=== PATIENT | female | born 1945 | race Caucasian/White ===

== ENCOUNTER 2019-11-17 08:34 | Outpatient (CLI) | payer MEDICARE, SELFPAY ==
--- NOTE | ~2019-11-17 | MMUS_ITS ---
EXAMINATION: MM screen RT diag LT w billie, US breast LT complete HISTORY: Follow-up breast masses TECHNIQUE: Additional 3-D tomosynthesis images of were performed and synthetic 2-D images were genera roberto. CAD analysis was submitted and interpreted. High resolution left breast ultrasound was performed . COMPARISON: Comparison to multiple prior studies sequentially, with oldest reviewed study dated 08/29. FINDINGS: MAMMOGRAPHIC FINDINGS: The breasts are heterogenously dense, which may obscure small masses. There are stable bilateral yuko st asymmetries and masses. No new masses, calcifications or architectural distortion. There are benig n-appearing breast calcifications. ULTRASOUND: Left breast ultrasound: There are multiple hypoechoic masses of the left breast. 12:00, 3 cm from the nipple, there is an ova l hypoechoic mass measuring 7 x 8 x 3 mm, decreased in size compared with prior examination. No inter nal vascularity or posterior features. At 12:00, 3 cm from the nipple, there is an irregular shaped h ypoechoic mass measuring 4 mm without posterior features or internal vascularity. At 12:00, 5 cm from the nipple, there is a 2 mm cyst. At 1:00, 4 cm from the nipple, there is an oval hypoechoic mass me asuring 3 x 4 x 3 mm with low-level internal echoes, subtle posterior acoustic enhancement and no int ernal vascularity. At 2:00, 4 cm from the nipple, there is an oval hypoechoic mass measuring 5 mm, li hawa intramammary lymph node or cluster of microcysts. At 2:00, 5 cm from the nipple, there is a 4 mm cyst. At 2:00, 5 cm from the nipple, there is an irregular shaped hypoechoic mass measuring 5 x 3 x 4 mm. This was not definitely visualized on prior examination. No internal vascularity or posterior f eatures. At 3:00, 6 cm from the nipple, there is an oval hypoechoic mass measuring 5 x 6 x 3 mm. No i nternal vascularity or posterior features. There are multiple simple and complicated cysts of the lef t breast. At 3:00, 5 cm from the nipple, there is an oval hypoechoic mass measuring 3 mm, likely shira gn. At 3:00, 5 cm from the nipple, there is a benign-appearing 5 mm intramammary lymph node. At 10:00 , 4 cm from the nipple, there is an irregular shaped hypoechoic mass measuring 6 x 5 mm without poste rior features. At 11:00, 3 cm from the nipple, there is a hypoechoic mass with echogenic hilum measur ing 7 mm with peripheral vascularity. No posterior features. This is likely benign intramammary lymph node. There are probable additional lymph nodes at this location. At 11:00, 3 cm from the nipple, th ere is an oval hypoechoic mass measuring 9 mm maximum dimension, likely benign. IMPRESSION: 1. Left breast masses identified by ultrasound not definitely seen on prior examinations, including m asses at 2:00, 5 cm from the nipple measuring 5 mm maximum dimension, 3:00, 6 cm from the nipple keiko uring 6 mm greatest dimension and 10:00, 4 cm from the nipple measuring 6 mm greatest dimension. Ultr asound-guided biopsy recommended for these masses. BI-RADS CATEGORY 4-SUSPICIOUS ABNORMALITY Reviewed, dictated and finalized at location A. IMPRESSION: 1. Left breast masses identified by ultrasound not definitely seen on prior exa minations, including masses at 2:00, 5 cm from the nipple measuring 5 mm maximu m dimension, 3:00, 6 cm from the nipple measuring 6 mm greatest dimension and 1 0:00, 4 cm from the nipple measuring 6 mm greatest dimension. Ultrasound-guided biopsy recommended for these masses. BI-RADS CATEGORY 4-SUSPICIOUS ABNORMALITY
--- NOTE | ~2019-11-17 | DEXA_ITS ---
BMD(1) Young-Adult(2) Age-Matched(3) Region (g/cm2) T-score Z-score WHO Classification L1 1.144 0.0 1.2 Normal L2 1.276 0.5 1.7 Normal L3 1.370 1.2 2.4 Normal L4 1.430 1.6 2.8 Normal L1-L4 1.307 0.9 2.1 Normal Trend: L1-L4 Change vs Change vs Measured Age BMD(1) Baseline Previous Date (years) (g/cm2) (%) (%) 13/17/2019 [age] 1.307 7.5* 6.3* 09[birth year]15/2016 70.8 1.230 1.2 1.2 04/22/2012 66.4 1.216 baseline - * - Indicates significant change based on 95% confidence interval. 1 - Statistically 68% of repeat scans fall within 1SD (+- 0.010 g/cm2 for AP Spine L1-L4) 2 - [place] (Combined NHANES (ages 20-30) / [employer] Co (ages 20-40)) AP Spine Reference Population (v112) 3 - Matched for Age, Weight (females 25-100 kg), Ethnic 11 - World Health Organization - Definition of Osteoporosis and Osteopenia for Women: Normal = T-score at or above -1.0 SD; Osteopenia = T-score between -1.0 and -2.5 SD; Osteoporosis = T-score at or below -2.5 SD; (WHO definitions only apply when a young healthy Women reference database is used to determine T-scores.) Printed: 11/17/2019 9:53:24 AM (13.60)76:3.00:22.22:27.0 0.00:12.30 0.60x1.05 30.7:%Fat=52.2% 0.00:0.00 0.00:0.00 Filename: [id number] Scan Mode: Thick;OneScan 83.0 uGIN[employer]NO [employer] [place] [id number] BMD(1) Young-Adult(2,7) Age-Matched(3) Region (g/cm2) T-score Z-score WHO Classification Neck Left 0.905 -1.0 0.5 Normal Right 0.907 -0.9 0.5 Normal Mean 0.906 -1.0 0.5 Normal Difference 0.002 0.0 0.0 - Total Left 0.973 -0.3 0.9 Normal Right 0.988 -0.2 1.0 Normal Mean 0.981 -0.2 1.0 Normal Difference 0.015 0.1 0.1 - Hip [place] Length Comparison (mm) (Right = 95.3 mm) (Mean = 102.5 mm) (Left = 96.6 mm) Trend: Total Mean Change vs Change vs Measured Age BMD(1) Baseline Previous Date (years) (g/cm2) (%) (%) 11/17/2019 74.0 0.981 3.2* 3.2* 04/22/2012 66.4 0.951 baseline - * - Indicates significant change based on 95% confidence interval. 1 - Statistically 68% of repeat scans fall within 1SD (+- 0.010 g/cm2 for DualFemur Total) 2 - [place] (Combined NHANES (ages 20-30) / [employer] Co (ages 20-40)) Femur Reference Population (v112) 3 - Matched for Age, Weight (females 25-100 kg), Ethnic 7 - DualFemur Total T-score difference is 0.1. Asymmetry is None. 11 - World Health Organization - Definition of Osteoporosis and Osteopenia for Women: Normal = T-score at or above -1.0 SD; Osteopenia = T-score between -1.0 and -2.5 SD; Osteoporosis = T-score at or below -2.5 SD; (WHO definitions only apply when a young healthy Women reference database is used to determine T-scores.) Printed: 11/17/2019 9:53:24 AM (13.60); Filename: [id number].dfx; Right Femur; 22.2:%Fat=39.7%; Neck Angle (deg)= 56; Scan Mode: Standard 37.0 uGy; Left Femur; 21.6:%Fat=40.9%; Neck Angle (deg)= 68; Scan Mode: Standard 37.0 uGy CDNlion [id number] Dear Ce Thompson, Your patient Kori Ferguson completed a BMD test on 11/17/2019 using the Lunar Prodigy DXA System (analysis version: 13.60) manufactured by [employer]. The following summarizes the results of our evaluation. PATIENT BIOGRAPHICAL: Name: Kori Ferguson
== END 2019-11-17 08:35 | disposition home or self-care (01) ==
PROVIDERS: PCP Internal Medicine; Visit Provider Internal Medicine
DX: N63.21 Unspecified lump in the left breast, upper outer quadrant (principal); N63.22 Unspecified lump in the left breast, upper inner quadrant; Z12.31 Encounter for screening mammogram for malignant neoplasm of breast; M81.0 Age-related osteoporosis without current pathological fracture
CPT/HCPCS: 76641; 77063; 77065; 77067; 77080

== ENCOUNTER 2020-02-05 10:40 | Emergency (ER) | payer MEDICARE, SELFPAY ==
--- NOTE | ~2020-02-05 | CT_ITS ---
EXAMINATION: CT brain wo con EXAM DATE: 02/05/2020 11:33 INDICATION: Temporary change in awareness. Fall. TECHNIQUE: Spiral CT of the head was performed without contrast. Axial, coronal and sagittal images were reviewed. The dose-length product (DLP) for this examination was 605.33 mGy-cm. The exposure w as tailored according to patient size, and iterative reconstruction (ASIR) was used as additional dos e reduction technique. There is no prior study for comparison. FINDINGS: There is no acute intraparenchymal hemorrhage. No evidence of intraparenchymal brain mass lesion. No evidence of acute infarction. Please note that initial head CT has limited sensitivity f or small or acute infarctions. There is mild periventricular and subcortical hypodensity, nonspecific but probably related to small vessel ischemic disease. There is moderate prominence of the sulci a nd ventricles related to cerebral atrophy. There is intracranial carotid arteriosclerosis. There a re no extra-axial collections. There is no mass effect or midline shift. The orbits are unremarkabl e. Small amount posterior scalp swelling suspected. The visualized sinuses and mastoid air cells are well aerated. IMPRESSION: 1. No acute intracranial findings. 2. Chronic age related findings. 3. Probable small posterior scalp swelling. Reviewed, dictated and finalized at location A.
--- NOTE | ~2020-02-05 | XR_ITS ---
EXAMINATION: XR chest 1V portable 02/05/2020 11:32 INDICATION: Confusion. Hallucination. Status post fall PROCEDURE: AP portable chest COMPARISON: Comparison to multiple prior studies sequentially, with oldest reviewed study dated 01/09. FINDINGS: The lungs are clear. The cardiomediastinal silhouette is within normal limits. There are no pleural effusions. There is no pneumothorax suspected. Calcified granuloma of the right lung bas e. IMPRESSION: 1: NO ACUTE CARDIOPULMONARY DISEASE. Reviewed, dictated and finalized at location B.
--- NOTE | ~2020-02-05 | XR_ITS ---
EXAMINATION: XR elbow LT 2V DATE: 02/05/2020 12:18 INDICATION: Left elbow injury TECHNIQUE: Anteroposterior and lateral views of the left elbow were obtained. COMPARISON: None. FINDINGS: Alignment is normal. No fracture or joint effusion. Joint spaces are normal. . Soft tissue swelling d orsal to the proximal ulna. IMPRESSION: 1. . No left elbow joint effusion or osseous abnormality. Reviewed, dictated and finalized at location A.
--- NOTE | ~2020-02-05 | XR_ITS ---
XR hip RT 2V w AP pelvis 02/05/2020 11:33 Indication: Right hip pain after fall Procedure: 4 views right hip Comparison: No prior studies for comparison. Findings: There is a comminuted, displaced right femoral intertrochanteric fracture. There is osteoar thritis of the hip. Osteopenia. Mild osteitis pubis. No significant soft tissue abnormality. Impression: 1: Comminuted displaced right femoral intertrochanteric fracture. Reviewed, dictated and finalized at location B. Impression: 1: Comminuted displaced right femoral intertrochanteric fracture.
--- NOTE | 2020-02-05 10:46 | ECG_ITS ---
Measurements Intervals [place] Rate: 111 P: 37 NH: 96 QRS: 48 QRSD: 93 T: 18 QT: 338 QTc: 461 Interpretive Statements SINUS TACHYCARDIA WITH SHORT NH INTERVAL CONSIDER INFERIOR INFARCT, AGE INDETERMINATE BORDERLINE ST ABNORMALITY- ANTEROLATERAL LEADS BASELINE ARTIFACT- I, II, AVR, AVL, V1 ABNORMAL ECG Electronically Signed On 02-05-2020 12:10:04 CDT by Gagan Hooper D.O.
[2020-02-05 10:56] VITALS: BP 115/65; PULSE 116; RESP 18; TEMP 36.6; O2SAT 97
[2020-02-05 11:09] LABS: Mean Corpuscular HGB Conc 34.2 g/dL (32.0-36.0); Mean Corpuscular Volume 90.5 fL (78.0-102.0); Mean Platelet Volume 9.1 fl (9.2-11.8); Platelet Count Result 248 K/mm3 (150-420); Red Cell Distribution Width 13.2 % (11.6-14.4); White Blood Count 11.7 K/mm3 (4.8-10.8)
[2020-02-05 11:27] LABS: BNP 28.6 pg/mL (0-100)
[2020-02-05 11:34] LABS: Alanine Aminotransferase 28 U/L (14-59); Alkaline Phosphatase 139 U/L (46-116); Anion Gap 9 mmol/L (8-16); Aspartate Amino Transferase 21 U/L (15-37); Bilirubin,Total 1.2 mg/dL (0.00-1.00); Blood Urea Nitrogen 22 mg/dL (7-18); Calcium 8.9 mg/dL (8.5-10.1); Carbon Dioxide 29 mmol/L (21-32); Chloride 100 mmol/L (98-108); Creatine Kinase 750 U/L (26-192); Estimated CRCL calculation 36 ml/min; Estimated Glomerular Filt Rate 43; Glucose 180 mg/dL (70-99); Osmolality Calculated 294 mOsm/kg (285-295); Potassium 3.9 mmol/L (3.5-5.1); Sodium 138 mmol/L (136-145); Thyroid Stimulating Hormone 0.56 uIU/mL (0.36-3.74); Total Protein 7.6 g/dL (6.4-8.2); Troponin I < 0.02 ng/mL (0.00-0.056)
[2020-02-05 11:35] LABS: Ethanol 5 mg/dL (0-6)
[2020-02-05 11:48] VITALS: BP 127/75; PULSE 109; RESP 20; O2SAT 98
[2020-02-05] MEDS: SODIUM CHLORIDE 0.9% IV 1,000 ML 999 ML IV CONT (11:48)
[2020-02-05 11:50] LABS: INR 1.1; Partial Thromboplastin Time 29.5 SEC (22.3-31.6); Prothrombin Time 10.9 Seconds (9.64-11.0)
--- NOTE | 2020-02-05 12:28 | ED.AMS ---
HPI - Altered Mental Status General Chief Complaint: Altered Mental Status Stated Complaint: Ambulance Source: patient Mode of arrival: EMS Limitations: no limitations History of Present Illness HPI narrative: This is a 74-year-old female presents via EMS after daughter had called and she was found on the floor known length of time there was loss of urine, with no seizure activity no history of seizures. The patient apparently had a fall and has a externally rotated right leg with a good brisk pedal pulse with no numbness or tingling with no pain currently in her right hip area. The patient has a known history of COPD, hypertension, hyperlipidemia and history of alcoholism. Patient is not complaining of any shortness of breath, no chest pain no fever chills no nausea vomiting or abdominal pain. The patient also has some bruising and contusion to her left elbow area. There is no bruising or contusions to her right hip area. MD complaint: confusion Onset (ago): hour(s) Timing confirmed by: family member Severity: mild Context: alcohol abuse Associated symptoms: denies other symptoms Related Data Home Medications Medication Instructions Recorded Confirmed albuterol sulfate 2 puff INHALATION QID 02/05/20 02/05/20 aspirin 81 mg PO DAILY 02/05/20 02/05/20 atorvastatin 40 mg PO DAILY 02/05/20 02/05/20 cetirizine [Zyrtec] 10 mg PO DAILY 02/05/20 02/05/20 cilostazol 100 mg PO BID 02/05/20 02/05/20 citalopram 20 mg PO DAILY 02/05/20 02/05/20 clonazepam 1 mg PO DAILY 02/05/20 02/05/20 ergocalciferol (vitamin D2) 1,250 mcg PO WEEKLY 02/05/20 02/05/20 fluticasone propionate 2 spray INTRANASAL DAILY 02/05/20 02/05/20 fluticasone propionate [Flovent 1 puff INHALATION Q12H 02/05/20 02/05/20 HFA] furosemide 40 mg PO DAILY 02/05/20 02/05/20 ipratropium bromide 2 spray INTRANASAL TID 02/05/20 02/05/20 oxybutynin chloride 5 mg PO BID 02/05/20 02/05/20 spironolactone 100 mg PO DAILY 09/17/20 09/17/20 Allergies Allergy/AdvReac Type Severity Reaction Status Date / Time Penicillins Allergy Unknown Verified 04/17/12 10:51 Review of Systems Review of Systems: All systems reviewed & are unremarkable except as noted in HPI and below PMFSH Past Medical History Medical History COPD (chronic obstructive pulmonary disease) History of alcoholism HLD (hyperlipidemia) HTN (hypertension) Family History Family History Father Hypertension Social History Social History Smoking status: Heavy tobacco smoker Second hand tobacco smoke exposure: No Alcohol intake: current Exam Const: General: no acute distress and alert Orientation/consciousness: patient oriented x3 HENMT: Head: normal to inspection Eyes: Conjunctivae: conjunctivae normal Pupils: Equal, round and reactive pupils present EOM: EOMs intact bilaterally Direct Ophthalmoscopy: no photophobia Neck: Neck: normal visual inspection, no lymphadenopathy and no meningeal signs Chest: Chest palpation & inspection: normal inspection of the chest Resp: Effort & Inspection: normal respiratory effort Auscultation: clear to auscultation bilaterally Cardio: Rate: tachycardic Rhythm: regular rhythm GI: GI Palp: Yes Soft to palpation Auscultation: normal bowel sounds : General: Yes no CVA tenderness Neuro: General: patient oriented x3, moves all extremities, no meningeal signs and no focal motor deficits Speech: normal speech Extrem: Other: external rotation right leg with a brisk pedal pulse with no numbness or tingling no bruising or hematomas noted Psych: Appearance: grossly normal Mental Status: mental status grossly normal Affect: normal affect Attitude: cooperative Thought content: Yes Normal thought content present Course Course Emergency Course: reassessment of patient continues to be pain-
[2020-02-05 12:37] LABS: Add Urine Microscopic? YES; Appearance Urine Sl Cloudy (Clear); Bilirubin Urine Negative (Negative); Blood Urine 1+ (Negative); Color Urine Amber (Yellow); Glucose Urine UA Negative (Negative); Ketones Urine Trace (Negative); Leukocyte Esterase Ur Trace (Negative); Nitrate Urine Positive (Negative); Protein Urine Trace (Negative); Specific Grav Ur >= 1.030 (1.010-1.020); Urobilinogen Urine 0.2 mg/dL (0.2-1.0)
[2020-02-05 12:40] LABS: Squamous Epithelial Cell Urine Few /hpf (Few)
[2020-02-05 12:41] LABS: Bacteria Urine 2+ /hpf
--- NOTE | 2020-02-05 12:52 | PC.NURSE ---
Pt requesting [facility] for transfer because her daughter lives in [place]. [facility] contacted.
[2020-02-05 13:13] VITALS: BP 155/73; PULSE 101
[2020-02-05 14:11] LABS: Reflex Lactic Acid Yes or No No Lactic Reflex
[2020-02-05 14:45] VITALS: BP 145/85; PULSE 88; RESP 15; TEMP 36.8; O2SAT 97
--- NOTE | 2020-02-05 15:22 | PC.NURSE ---
[facility] unavailable for 1hr or more to take transfer. [facility] contacted and will take pt to [facility]. no change in pt condition.
--- NOTE | 2020-02-07 20:00 | PC.NURSE ---
Preliminary blood culture report noted. call to [facility], spoke with charge nurse Yazan, regarding results. faxed report to yazan per request.
== END 2020-02-05 15:56 | disposition short-term general hospital (02) ==
PROVIDERS: Emergency Provider Emergency Medicine; PCP Internal Medicine
DX: S72.141A Displaced intertrochanteric fracture of right femur, initial encounter for closed fracture (principal); J44.9 Chronic obstructive pulmonary disease, unspecified; E78.5 Hyperlipidemia, unspecified; I10 Essential (primary) hypertension; F17.200 Nicotine dependence, unspecified, uncomplicated; Z79.899 Other long term (current) drug therapy; W19.XXXA Unspecified fall, initial encounter
CPT/HCPCS: 36415; 70450; 71045; 73070; 73502; 80053; 80307; 81001; 82550; 83605; 83880; 84443; 84484; 85027; 85610; 85730; 87040; 87077; 87186; 93005; 96361; 96365; 99285; J0696; J7030

== ENCOUNTER 2020-09-14 10:55 | Emergency (ER) | payer MEDICARE, SELFPAY ==
--- NOTE | 2020-09-14 11:03 | ED.FEMALEGU ---
HPI - Female Genitourinary General Chief complaint: Urogenital-Female Stated complaint: Weak sob Source: patient and RN notes reviewed Mode of arrival: ambulatory Limitations: no limitations History of Present Illness HPI Narrative: patient has been having weakness and shortness of breath for the last 2-3 days. This morning when her daughter went to the house patient appeared confused. She gets urinary tract infections frequently and when she does she becomes confused the last time this happened she fell and broke her femur. She went to her primary care physician's office this morning, and then was sent here for further evaluation for possible antibiotics and to see if she might need to be admitted for altered mental status. MD elicited complaint: UTI Pertinent past history: recurrent UTIs Onset (ago): day(s) (2) Severity: moderate Urinary symptoms: Frequency Exacerbating factors: none Relieving factors: none Associated symptoms: weakness and chills Sexual activity: No Related Data Home Medications Medication Instructions Recorded Confirmed albuterol sulfate 2 puff INHALATION QID 02/05/20 09/14/20 aspirin 81 mg PO DAILY 02/05/20 09/14/20 atorvastatin 40 mg PO DAILY 02/05/20 09/14/20 cetirizine [Zyrtec] 10 mg PO DAILY 02/05/20 09/14/20 cilostazol 100 mg PO BID 02/05/20 09/14/20 citalopram 20 mg PO DAILY 02/05/20 09/14/20 clonazepam 1 mg PO DAILY 02/05/20 09/14/20 ergocalciferol (vitamin D2) 1,250 mcg PO WEEKLY 02/05/20 09/14/20 fluticasone propionate 2 spray INTRANASAL DAILY 02/05/20 09/14/20 fluticasone propionate [Flovent 1 puff INHALATION Q12H 02/05/20 09/14/20 HFA] furosemide 40 mg PO DAILY 02/05/20 02/05/20 ipratropium bromide 2 spray INTRANASAL TID 02/05/20 02/05/20 oxybutynin chloride 5 mg PO BID 02/05/20 02/05/20 spironolactone 100 mg PO DAILY 02/05/20 02/05/20 Allergies Allergy/AdvReac Type Severity Reaction Status Date / Time Penicillins Allergy Unknown Verified 04/17/12 10:51 [facility] Past Medical History Medical History (Updated 09/14/20 @ 13:34 by Dandy Richardson MD) COPD (chronic obstructive pulmonary disease) History of alcoholism HLD (hyperlipidemia) HTN (hypertension) Family History Family History Father Hypertension Social History Social History Smoking status: Heavy tobacco smoker Second hand tobacco smoke exposure: No Alcohol intake: current Exam Const: General: healthy appearing and no acute distress Nutritional Appearance: well nourished and obese centrally obese Orientation/consciousness: patient oriented x3 Other: Patient appears interactive, oriented with no change in mentation at this time HENMT: Head: normal to inspection Ears: external ears normal Eyes: General: appearance normal, both eyes and all related structures Conjunctivae: conjunctivae normal Pupils: Equal, round and reactive pupils present EOM: EOMs intact bilaterally Neck: Neck: normal visual inspection Resp: Effort & Inspection: normal respiratory effort Auscultation: clear to auscultation bilaterally Cardio: Rate: regular rate Rhythm: regular rhythm GI: GI Palp: Yes Soft to palpation and No Tenderness to palpation present (GI) Auscultation: normal bowel sounds Back/Spine/Pelvis: Back: no CVA tenderness Cervical Spine: cervical ROM normal Thoracic/Lumbar Spine: thoraco-lumbar ROM normal Skin: General skin exam: normal color Rashes: no rashes Neuro: General: patient oriented x3, moves all extremities, no meningeal signs and no focal motor deficits Speech: normal speech Gait exam (Neuro): Normal gait present ( Uses a walker) Course Course Emergency Course: I discussed possible admission with the patient she decides she wants to go home she says that she feels fine. Daughter is here and agrees that she feels that she will be safe at home. Vital Signs Vital signs: Vital Signs T
[2020-09-14 11:10] VITALS: BP 111/67; PULSE 107; RESP 20; TEMP 36.4; O2SAT 96
[2020-09-14 11:37] LABS: Basophils Absolute Auto 0.01 K/mm3 (0.00-0.10); Basophils Percent Auto 0.1 % (0.0-1.0); Hematocrit 40.1 % (35.0-42.0); Hemoglobin 13.9 g/dL (11.7-13.8); Immature Granulocyte Absolute 0.12 K/mm3 (0.00-0.00); Immature Granulocyte Percent A 0.9 % (0.0-0.0); Lymphocytes Percent Auto 9.8 % (18.0-42.0); Mean Corpuscular HGB Conc 34.7 g/dL (32.0-36.0); Mean Corpuscular Hemoglobin 30.9 pg (27.0-31.0); Mean Corpuscular Volume 89.1 fL (78.0-102.0); Mean Platelet Volume 8.9 fl (9.2-11.8); Monocytes Absolute Auto 1.09 K/mm3 (0.10-0.90); Monocytes Percent Auto 8.2 % (2.0-11.0); Neutrophils Absolute Auto 10.8 K/mm3 (1.7-7.2); Platelet Count Result 274 K/mm3 (150-420); Red Cell Distribution Width 12.8 % (11.6-14.4); White Blood Count 13.3 K/mm3 (4.8-10.8)
[2020-09-14 11:38] LABS: Add Urine Microscopic? YES; Appearance Urine Sl Cloudy (Clear); Bilirubin Urine Negative (Negative); Blood Urine 3+ (Negative); Color Urine Yellow (Yellow); Glucose Urine UA Negative (Negative); Ketones Urine Negative (Negative); Leukocyte Esterase Ur 3+ LEU/UL (Negative); Nitrate Urine Negative (Negative); Protein Urine 1+ (Negative); Urobilinogen Urine 0.2 mg/dL (0.2-1.0)
[2020-09-14 11:45] LABS: Bacteria Urine 4+ /hpf; Renal Epithelial Cells Urine Few /hpf; Squamous Epithelial Cell Urine Few /hpf (Few); WBC Urine >75 /hpf (0-3)
[2020-09-14 11:51] LABS: Alanine Aminotransferase 30 U/L (14-59); Albumin Level 4.1 g/dL (3.4-5.0); Alkaline Phosphatase 171 U/L (46-116); Anion Gap 11 mmol/L (8-16); Aspartate Amino Transferase 15 U/L (15-37); Bilirubin,Total 1.1 mg/dL (0.00-1.00); Blood Urea Nitrogen 19 mg/dL (7-18); Calcium 9.8 mg/dL (8.5-10.1); Carbon Dioxide 27 mmol/L (21-32); Chloride 98 mmol/L (98-108); Estimated Glomerular Filt Rate 38; Glucose 90 mg/dL (70-99); Osmolality Calculated 284 mOsm/kg (285-295); Potassium 3.4 mmol/L (3.5-5.1); Sodium 136 mmol/L (136-145)
[2020-09-14 11:53] LABS: CRP 14.9 mg/dL (0.0-0.9)
[2020-09-14 13:40] VITALS: BP 118/72
== END 2020-09-14 13:40 | disposition home or self-care (01) ==
PROVIDERS: Emergency Provider Emergency Medicine; PCP Internal Medicine
DX: N30.01 Acute cystitis with hematuria (principal)
CPT/HCPCS: 36415; 51701; 80053; 81001; 85025; 86140; 87077; 87086; 87088; 87186; 96365; 99283; 99284; J0696

== ENCOUNTER 2020-10-07 09:06 | Outpatient (CLI) | payer MEDICARE, SELFPAY ==
[2020-10-07 09:24] LABS: Basophils Absolute Auto 0.01 K/mm3 (0.00-0.10); Basophils Percent Auto 0.1 % (0.0-1.0); Eosinophils Absolute Auto 0.08 K/mm3 (0.02-0.50); Eosinophils Percent Auto 1.2 % (1.0-6.0); Hematocrit 41.1 % (35.0-42.0); Hemoglobin 14.2 g/dL (11.7-13.8); Immature Granulocyte Absolute 0.05 K/mm3 (0.00-0.00); Immature Granulocyte Percent A 0.7 % (0.0-0.0); Lymphocytes Absolute Auto 2.65 K/mm3 (1.10-4.50); Lymphocytes Percent Auto 38.2 % (18.0-42.0); Mean Corpuscular HGB Conc 34.5 g/dL (32.0-36.0); Mean Corpuscular Hemoglobin 30.9 pg (27.0-31.0); Mean Corpuscular Volume 89.5 fL (78.0-102.0); Mean Platelet Volume 8.6 fl (9.2-11.8); Monocytes Absolute Auto 0.52 K/mm3 (0.10-0.90); Monocytes Percent Auto 7.5 % (2.0-11.0); Neutrophils Absolute Auto 3.6 K/mm3 (1.7-7.2); Neutrophils Percent Auto 52.3 % (50.0-70.0); Platelet Count Result 261 K/mm3 (150-420); Red Blood Count 4.59 M/mm3 (4.20-5.40); Red Cell Distribution Width 12.8 % (11.6-14.4); White Blood Count 6.9 K/mm3 (4.8-10.8)
[2020-10-07 10:19] LABS: Alanine Aminotransferase 81 U/L (14-59); Albumin Level 4.4 g/dL (3.4-5.0); Alkaline Phosphatase 153 U/L (46-116); Anion Gap 11 mmol/L (8-16); Aspartate Amino Transferase 30 U/L (15-37); Bilirubin,Total 0.4 mg/dL (0.00-1.00); Blood Urea Nitrogen 15 mg/dL (7-18); Calcium 9.6 mg/dL (8.5-10.1); Carbon Dioxide 30 mmol/L (21-32); Chloride 100 mmol/L (98-108); Estimated Glomerular Filt Rate 45; Glucose 107 mg/dL (70-99); Osmolality Calculated 292 mOsm/kg (285-295); Potassium 3.8 mmol/L (3.5-5.1); Sodium 141 mmol/L (136-145); Total Protein 7.6 g/dL (6.4-8.2)
== END 2020-10-07 09:07 | disposition home or self-care (01) ==
LOC: CHSLAB 09:08
PROVIDERS: PCP Internal Medicine; Visit Provider Internal Medicine
DX: R19.7 Diarrhea, unspecified (principal)
CPT/HCPCS: 36415; 80053; 85025

== ENCOUNTER 2020-10-11 08:02 | Outpatient (CLI) | payer MEDICARE, SELFPAY | END 2020-10-11 08:03 | disposition home or self-care (01) | PROVIDERS: PCP Internal Medicine; Visit Provider Internal Medicine | DX: R19.7 Diarrhea, unspecified (principal) | CPT/HCPCS: 87324 ==

== ENCOUNTER 2021-04-13 13:55 | Outpatient (CLI) | payer MEDICARE, SELFPAY ==
[2021-04-13 14:44] LABS: Influenza A QL RT-PCR Negative (Negative); Influenza B QL RT-PCR Negative (Negative); SARS-CoV-2 RNA PCR Negative (Negative)
== END 2021-04-13 13:56 | disposition home or self-care (01) ==
LOC: CHSLAB 13:56
PROVIDERS: PCP Internal Medicine; Visit Provider Internal Medicine
DX: J06.9 Acute upper respiratory infection, unspecified (principal); Z20.822 Contact with and (suspected) exposure to COVID-19
CPT/HCPCS: 87502; C9803; U0003; U0005

== ENCOUNTER 2021-05-07 16:06 | Emergency (ER) | payer MEDICARE, SELFPAY ==
--- NOTE | ~2021-05-07 | XR_ITS ---
EXAMINATION: XR chest 1V portable 05/07/2021 17:16 INDICATION: Shortness of breath and leg swelling PROCEDURE: AP portable chest COMPARISON: Comparison to multiple prior studies sequentially, with oldest reviewed study dated 02/18. FINDINGS: The lungs are clear. The cardiomediastinal silhouette is within normal limits. There are no pleural effusions. There is no pneumothorax suspected. There is sequela of chronic granulomatous disease. IMPRESSION: 1: NO ACUTE CARDIOPULMONARY DISEASE. Reviewed, dictated and finalized at location A. 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
[2021-05-07 16:42] VITALS: BP 114/58; PULSE 72; RESP 18; TEMP 36.1; O2SAT 96
--- NOTE | 2021-05-07 16:46 | ED.EXTPRO ---
HPI - Extremity Problem General Chief complaint: Extremity Problem,Nontraumatic Stated complaint: swelling in legs Time Seen by Provider: 05/07/21 16:46 Source: patient History of Present Illness HPI Narrative: 75-year-old female, smoker, history of alcohol use, hypertension, dyslipidemia, COPD, CKD, recurrent urinary tract infection presented to the ER with -- left leg swelling with pain. No history of trauma. She has bilateral leg swelling but the left is greater than the right. No fever. Chest pain. No shortness of breath. MD Complaint: extremity swelling Onset (ago): day(s) ( More than 3 days.) Pain Consistency: constant Location: left Severity scale (1-10): 2 Quality: aching Radiation: none Relieving factors: nothing Exacerbating factors: nothing Associated symptoms: denies other symptoms and shortness of breath ( She has chronic cough and shortness of breath but has had no recent exacerbations.) Related Data Home Medications Medication Instructions Recorded Confirmed albuterol sulfate 2 puff INHALATION QID 02/05/20 09/14/20 aspirin 81 mg PO DAILY 02/05/20 09/14/20 atorvastatin 40 mg PO DAILY 02/05/20 09/14/20 cetirizine [Zyrtec] 10 mg PO DAILY 02/05/20 09/14/20 cilostazol 100 mg PO BID 02/05/20 09/14/20 citalopram 20 mg PO DAILY 02/05/20 09/14/20 clonazepam 1 mg PO DAILY 02/05/20 09/14/20 ergocalciferol (vitamin D2) 1,250 mcg PO WEEKLY 02/05/20 09/14/20 fluticasone propionate 2 spray INTRANASAL DAILY 02/05/20 09/14/20 fluticasone propionate [Flovent 1 puff INHALATION Q12H 02/05/20 09/14/20 HFA] furosemide 40 mg PO DAILY 02/05/20 09/14/20 ipratropium bromide 2 spray INTRANASAL TID 02/05/20 09/14/20 oxybutynin chloride 5 mg PO BID 02/05/20 09/14/20 spironolactone 100 mg PO DAILY 02/05/20 09/14/20 Allergies Allergy/AdvReac Type Severity Reaction Status Date / Time Penicillins Allergy Unknown Unknown Verified 05/07/21 16:42 Review of Systems Review of Systems: All systems reviewed & are unremarkable except as noted in HPI and below Constitutional: Constitutional: Reports no additional constitutional complaints Eyes: Eyes: Reports as per HPI and Reports no additional eye complaints ENT: Reports system reviewed and no additional complaints, except as documented Comments: Left ear is stopped up. Bilateral gland swelling in the neck. Cardiovascular: Cardiovascular: Reports as per HPI and Reports no additional cardiovascular complaints Respiratory: Respiratory: Reports cough and Reports dyspnea Gastrointestinal: Gastrointestinal: Reports as per HPI and Reports no additional gastrointestinal complaints Genitourinary: Genitourinary: Reports no additional female genitourinary complaints and Reports as per HPI Musculoskeletal: Musculoskeletal: Reports no additional musculoskeletal complaints and Reports as per HPI Integumentary/Breasts: Skin/Breast: Reports system reviewed and no additional complaints, except as docu Neurologic: Reports system reviewed and no additional complaints, except as documented Psychiatric: Psychiatric: Reports no additional psychiatric complaints and Reports as per HPI Endocrine: Endocrine: Reports no additional endocrine complaints Hematologic/Lymphatic: Hematologic/Lymphatic: Reports no additional hematologic/lymphatic complaints Allergic/Immunologic: Allergic/Immunologic: Reports no additional allergic/immunologic complaints [facility] Past Medical History Medical History (Updated 05/07/21 @ 18:58 by Bill Dumas MD) CKD (chronic kidney disease) COPD (chronic obstructive pulmonary disease) History of alcoholism HLD (hyperlipidemia) HTN (hypertension) Family History Family History Father Hypertension Social History Social History Smoking status: Heavy tobacco smoker Second hand tobacco smoke exposure: No Alcohol intake: current Exam Const:
--- NOTE | 2021-05-07 17:03 | ECG_ITS ---
Measurements Intervals [place] Rate: 61 P: 59 SC: 145 QRS: 69 QRSD: 94 T: 55 QT: 425 QTc: 431 Interpretive Statements SINUS RHYTHM LOW QRS VOLTAGE IN PRECORDIAL LEADS BORDERLINE ST-T WAVE ABNORMALITY- ANTEROLAT/INF LEADS BASELINE ARTIFACT- I, II, III, AVR, AVL, AVF, V6 BORDERLINE ECG Electronically Signed On 05-07-2021 20:16:29 LINER CHECKER by Gagan Hooper D.O.
[2021-05-07 17:29] LABS: Basophils Absolute Auto 0.02 K/mm3 (0.00-0.10); Basophils Percent Auto 0.3 % (0.0-1.0); Eosinophils Absolute Auto 0.08 K/mm3 (0.02-0.50); Eosinophils Percent Auto 1.3 % (1.0-6.0); Hemoglobin 14.2 g/dL (11.7-13.8); Immature Granulocyte Absolute 0.04 K/mm3 (0.00-0.00); Immature Granulocyte Percent A 0.6 % (0.0-0.0); Lymphocytes Percent Auto 35.9 % (18.0-42.0); Mean Corpuscular HGB Conc 34.6 g/dL (32.0-36.0); Mean Corpuscular Hemoglobin 31.9 pg (27.0-31.0); Mean Corpuscular Volume 92.1 fL (78.0-102.0); Mean Platelet Volume 9.1 fl (9.2-11.8); Monocytes Absolute Auto 0.53 K/mm3 (0.10-0.90); Monocytes Percent Auto 8.3 % (2.0-11.0); Neutrophils Absolute Auto 3.4 K/mm3 (1.7-7.2); Neutrophils Percent Auto 53.6 % (50.0-70.0); Platelet Count Result 244 K/mm3 (150-420); Red Blood Count 4.45 M/mm3 (4.20-5.40); Red Cell Distribution Width 12.9 % (11.6-14.4); White Blood Count 6.4 K/mm3 (4.8-10.8)
[2021-05-07 17:44] LABS: D Dimer 0.44 mg/L (0.19-0.50)
[2021-05-07 17:53] LABS: Alanine Aminotransferase 31 U/L (14-59); Albumin Level 3.8 g/dL (3.4-5.0); Alkaline Phosphatase 139 U/L (46-116); Anion Gap 8 mmol/L (8-16); Aspartate Amino Transferase 16 U/L (15-37); Bilirubin,Total 0.5 mg/dL (0.00-1.00); Blood Urea Nitrogen 14 mg/dL (7-18); Calcium 8.9 mg/dL (8.5-10.1); Carbon Dioxide 33 mmol/L (21-32); Chloride 102 mmol/L (98-108); Estimated CRCL calculation 40 ml/min; Estimated Glomerular Filt Rate 48; Glucose 92 mg/dL (70-99); NT Pro B Type Natriuretic Pept 187 pg/mL (0-125); Osmolality Calculated 296 mOsm/kg (285-295); Potassium 3.6 mmol/L (3.5-5.1); Sodium 143 mmol/L (136-145); Total Protein 6.9 g/dL (6.4-8.2); Troponin I 5.1 ng/L (0.00-60.4)
[2021-05-07 18:20] LABS: Add Urine Microscopic? NO; Appearance Urine Clear (Clear); Bilirubin Urine Negative (Negative); Blood Urine Negative (Negative); Color Urine Light Yellow (Yellow); Glucose Urine UA Negative (Negative); Ketones Urine Negative (Negative); Leukocyte Esterase Ur Negative (Negative); Nitrate Urine Negative (Negative); Protein Urine Negative (Negative); Urobilinogen Urine 0.2 mg/dL (0.2-1.0)
== END 2021-05-07 18:41 | disposition left against medical advice (07) ==
LOC: CHSED 16:08
PROVIDERS: Emergency Provider Internal Medicine Critical Care Medicine; PCP Internal Medicine
DX: M79.89 Other specified soft tissue disorders (principal); N28.9 Disorder of kidney and ureter, unspecified; J44.9 Chronic obstructive pulmonary disease, unspecified; E78.5 Hyperlipidemia, unspecified; I10 Essential (primary) hypertension; F17.200 Nicotine dependence, unspecified, uncomplicated; R06.00 Dyspnea, unspecified
CPT/HCPCS: 36415; 71045; 80053; 81003; 83880; 84484; 85025; 85380; 93005; 99283; 99284

== ENCOUNTER 2021-07-19 09:37 | Outpatient (CLI) | payer MEDICARE, SELFPAY ==
--- NOTE | ~2021-07-19 | US_ITS ---
EXAMINATION: US venous doppler [facility] EXAM DATE: 07/19/2021 10:07 INDICATION: PAD legs, Edema . TECHNIQUE: Multiple grayscale, color flow and Doppler images of the left lower extremity deep venous system were obtained and reviewed. There is no prior study for comparison. FINDINGS: The left common femoral, femoral and profunda veins demonstrate normal color flow, respirat ory variation, augmentation and compressibility. Compressibility, color flow confirmed within the le ft popliteal, posterior tibial, peroneal, and greater saphenous veins. IMPRESSION: 1. No left lower extremity deep venous thrombosis. Reviewed, dictated and finalized at location G. UNT REPRESENTATIVE
== END 2021-07-19 09:38 | disposition home or self-care (01) ==
LOC: CHSIMG 09:40
PROVIDERS: PCP Internal Medicine; Visit Provider Internal Medicine
DX: I73.9 Peripheral vascular disease, unspecified (principal); R60.9 Edema, unspecified
CPT/HCPCS: 93971

== ENCOUNTER 2021-07-20 07:55 | Outpatient (CLI) | payer MEDICARE, SELFPAY ==
--- NOTE | ~2021-07-20 | US_ITS ---
EXAMINATION: US carotid duplex BI DATE: 07/20/2021 08:34 INDICATION: Peripheral arterial disease. TECHNIQUE: Grayscale, color Doppler, and pulsed Doppler images of the cervical carotid arteries were obtained. The degree of vessel stenosis is placed in one of the following categories: normal, <50%, 5 0-69%, >=70% but less than near-occlusion, near-occlusion, or total occlusion. Note that percent sten osis relative to normal distal artery lumen diameter is indirectly measured from velocity measurement s as described by Van, et al. Radiology 2003; [id number]:[id number]. Notes: Normal: Peak systolic velocity <125 centimeters/sec and no plaque <50%. Peak systolic velocity <125 ( EDV <40; ICA/CCA PSV ratio <2.0; used these factors only a tandem lesions or low cardiac output or co ntralateral disease) 50-69 %: PSV 125-230 (EDV 40-100; ratio 2-4) >= 70% but less than near occlusion: PSV greater than 230 (EDV > 100; ratio> 4.0) Near Occlusion: PSV that is variable; markedly narrowed lumen Occlusion: Absent flow on color/spectral Doppler and no lumen on huertas scale. COMPARISON: None. FINDINGS: RIGHT: The right common carotid artery (CCA) peak systolic velocity (PSV) is 106 cm/s. The right internal ca rotid artery (ICA) PSV is 71 cm/s. The right ICA end-diastolic velocity (EDV) is 18 cm/s. The right I CA/CCA PSV ratio is 0.7. The external carotid artery (ECA) PSV is 73 cm/s. There is antegrade flow in the right vertebral artery. LEFT: The left CCA PSV is 114 cm/s. The left ICA PSV is 55 cm/s. The left ICA EDV is 15 cm/s. The left ICA/ CCA PSV ratio is 0.5. The ECA PSV is 79 cm/s. There is antegrade flow in the left vertebral artery. IMPRESSION: 1. Less than 50% stenosis in the right internal carotid artery by sonographic criteria. 2. Less than 50% stenosis in the left internal carotid artery by sonographic criteria. Reviewed, dictated and finalized at location A. GAGE CLERK IMPRESSION: 1. Less than 50% stenosis in the right internal carotid artery by sonographic grace rojas. 2. Less than 50% stenosis in the left internal carotid artery by sonographic naresh alvarez.
--- NOTE | ~2021-07-20 | CT_ITS ---
EXAMINATION: CT lung screening DATE: 07/20/2021 08:44 INDICATION: Personal history of nicotine dependence, prior smoker with 50 pack year history TECHNIQUE: Computed tomography (CT) of the chest was performed without intravenous contrast. The dose -length product (DLP) was 141.43 mGy-cm. Automated exposure control and iterative reconstruction tech [employer] were employed. COMPARISON: None FINDINGS: There is a 3 mm nodule of the right upper lobe. Mild emphysema is noted. There is no pleura l effusion or pneumothorax. Calcified pulmonary nodules and calcified right hilar lymph nodes are con sistent with old granulomatous disease. The lungs are free of acute opacities. No pathologically enla rged thoracic lymph nodes are identified. The heart size is normal. There is an age-indeterminate mil d superior endplate compression fracture of the T12 vertebral body. IMPRESSION: 1. Lung-RADS category 2: Benign appearance or behavior. Continue annual screening with noncontrast lo w-dose chest CT in 12 months. Reviewed, dictated and finalized at location D. RNER IMPRESSION: 1. Lung-RADS category 2: Benign appearance or behavior. Continue annual screeni ng with noncontrast low-dose chest CT in 12 months.
--- NOTE | ~2021-07-20 | US_ITS ---
EXAMINATION: US arterial ankle brachial ind DATE: 07/20/2021 08:34 INDICATION: Peripheral arterial disease of the legs. Carotid stenosis. TECHNIQUE: Segmental pressures and plethysmographic and Doppler waveforms of the brachial and lower e xtremity arteries were obtained. COMPARISON: 12/25/2017 ultrasound ankle-brachial index FINDINGS: Right and left brachial artery pressures of 100 mm Hg and 107 mm Hg, respectively, are concordant (no rmal difference <= 30 mmHg). The right ankle-brachial index (CAMILA) is 0.93 (normal >= 0.9-1.0). The right great toe-brachial index (TBI) is 0.93 (normal >= 0.65). Arterial Doppler waveforms are biphasic. The left CAMILA is 0.97. The left TBI is 0.71. Arterial Doppler waveforms are biphasic. IMPRESSION: Normal bilateral CAMILA and TBI measurements Reviewed, dictated and finalized at Location A. Reviewed, dictated and finalized at location A. ERIZER FEEDER
== END 2021-07-20 07:56 | disposition home or self-care (01) ==
LOC: CHSIMG 07:56
PROVIDERS: PCP Internal Medicine; Visit Provider Internal Medicine
DX: I65.23 Occlusion and stenosis of bilateral carotid arteries (principal); I73.9 Peripheral vascular disease, unspecified; Z12.2 Encounter for screening for malignant neoplasm of respiratory organs; Z87.891 Personal history of nicotine dependence
CPT/HCPCS: 71271; 93880; 93922

== ENCOUNTER 2021-08-09 10:55 | Outpatient (CLI) | payer MEDICARE, SELFPAY ==
[2021-08-09 11:07] LABS: Basophils Absolute Auto 0.01 K/mm3 (0.00-0.10); Basophils Percent Auto 0.2 % (0.0-1.0); Eosinophils Absolute Auto 0.08 K/mm3 (0.02-0.50); Eosinophils Percent Auto 1.4 % (1.0-6.0); Hematocrit 42.2 % (35.0-42.0); Hemoglobin 14.5 g/dL (11.7-13.8); Immature Granulocyte Absolute 0.05 K/mm3 (0.00-0.00); Immature Granulocyte Percent A 0.8 % (0.0-0.0); Lymphocytes Absolute Auto 1.95 K/mm3 (1.10-4.50); Lymphocytes Percent Auto 33.1 % (18.0-42.0); Mean Corpuscular HGB Conc 34.4 g/dL (32.0-36.0); Mean Corpuscular Hemoglobin 32.1 pg (27.0-31.0); Mean Corpuscular Volume 93.4 fL (78.0-102.0); Mean Platelet Volume 8.7 fl (9.2-11.8); Monocytes Absolute Auto 0.42 K/mm3 (0.10-0.90); Monocytes Percent Auto 7.1 % (2.0-11.0); Neutrophils Absolute Auto 3.4 K/mm3 (1.7-7.2); Neutrophils Percent Auto 57.4 % (50.0-70.0); Platelet Count Result 244 K/mm3 (150-420); Red Blood Count 4.52 M/mm3 (4.20-5.40); Red Cell Distribution Width 13.1 % (11.6-14.4); White Blood Count 5.9 K/mm3 (4.8-10.8)
[2021-08-09 11:43] LABS: Alanine Aminotransferase 37 U/L (14-59); Albumin Level 4.1 g/dL (3.4-5.0); Alkaline Phosphatase 154 U/L (46-116); Anion Gap 9 mmol/L (8-16); Aspartate Amino Transferase 17 U/L (15-37); Bilirubin,Total 0.5 mg/dL (0.00-1.00); Blood Urea Nitrogen 17 mg/dL (7-18); Carbon Dioxide 29 mmol/L (21-32); Chloride 99 mmol/L (98-108); Estimated Glomerular Filt Rate 53; Glucose 101 mg/dL (70-99); Osmolality Calculated 285 mOsm/kg (285-295); Potassium 3.6 mmol/L (3.5-5.1); Sodium 137 mmol/L (136-145)
== END 2021-08-09 10:56 | disposition home or self-care (01) ==
LOC: CHSLAB 10:56
PROVIDERS: PCP Internal Medicine; Visit Provider Internal Medicine
DX: R19.7 Diarrhea, unspecified (principal)
CPT/HCPCS: 36415; 80053; 85025

== ENCOUNTER 2021-08-10 13:01 | Outpatient (CLI) | payer MEDICARE, SELFPAY | END 2021-08-10 13:02 | disposition home or self-care (01) | LOC: CHSLAB 13:03 | PROVIDERS: PCP Internal Medicine; Visit Provider Internal Medicine | DX: R19.7 Diarrhea, unspecified (principal) | CPT/HCPCS: 87324 ==

== ENCOUNTER 2022-02-23 08:27 | Outpatient (CLI) | payer MEDICARE, SELFPAY ==
--- NOTE | ~2022-02-23 | MM_ITS ---
EXAMINATION: MM screening [facility] BI w billie HISTORY: Screening mammogram TECHNIQUE: Craniocaudal and mediolateral oblique 3-D tomosynthesis images were obtained and synthetic 2-D images were generated. CAD analysis was submitted and interpreted. COMPARISON: 04/07/2019, 10/02/2018, 09/19/2018, 09/17/2017 BREAST PARENCHYMAL COMPOSITION: There are scattered areas of fibroglandular density. FINDINGS: There is architectural distortion in the upper outer quadrant of the left breast likely rel ated to excisional biopsy per history provided by the patient. No suspicious mass, calcification, or architectural distortion are identified in either breast to suggest malignancy. There has been no dorie picious interval change. IMPRESSION: 1. No mammographic evidence of malignancy. 2. Recommend routine screening mammography in one year. BI-RADS Category 2: Benign finding(s). Reviewed, dictated and finalized at location B.
== END 2022-02-23 08:28 | disposition home or self-care (01) ==
LOC: CHSIMG 08:30
PROVIDERS: PCP Internal Medicine; Visit Provider Internal Medicine
DX: Z12.31 Encounter for screening mammogram for malignant neoplasm of breast (principal)
CPT/HCPCS: 77063; 77067

== ENCOUNTER 2022-02-27 13:36 | Outpatient (CLI) | payer MEDICARE, SELFPAY ==
--- NOTE | ~2022-02-27 | XR_ITS ---
EXAMINATION: XR chest 2V Exam Date/Time: 02/27/2022 14:00 CDT HISTORY: COUGH,SOB,SMOKER, JUST FINISHED ABX Comparison: None available. RESULT: Lines, tubes, and devices: None. Lungs and pleura: Senescent changes. Calcified right midlung granuloma. Cardiomediastinal silhouette: Stable. Calcified hilar nodes. Other: No acute osseous or upper abdominal finding. IMPRESSION: No acute cardiopulmonary process. Reviewed, dictated and finalized at location K.
== END 2022-02-27 13:37 | disposition home or self-care (01) ==
LOC: CHSIMG 13:41
PROVIDERS: PCP Internal Medicine; Visit Provider Nurse Practitioner Family
DX: R05.9 Cough, unspecified (principal)
CPT/HCPCS: 71046

== ENCOUNTER 2022-04-27 08:23 | Outpatient (CLI) | payer MEDICARE, SELFPAY ==
--- NOTE | ~2022-04-27 | CT_ITS ---
EXAMINATION: CTA abd aorta runoff DATE: 04/27/2022 10:26 INDICATION: Peripheral arterial disease of the legs TECHNIQUE: Computed tomographic angiography (CTA) of the abdomen, pelvis, and both lower extremities was performed with 150 mL Omnipaque-350 intravenous contrast. The dose-length product (DLP) was 1509. 80 mGy-cm. Maximum intensity projection 3D-reconstructions of the arteries were created by the [employer] on a separate workstation. Automated exposure control and iterative reconstruction technique w ere employed. COMPARISON: None. FINDINGS: ABDOMINAL AORTA AND ITS BRANCHES: There is calcified atherosclerosis of the abdominal aorta without aneurysm or dissection. The celiac axis, superior mesenteric artery, and inferior mesenteric artery are normal at their origins. Single renal arteries are present. PELVIC VASCULATURE: Mild atherosclerosis without hemodynamically significant stenosis. RIGHT LOWER EXTREMITY VASCULATURE: There is atherosclerosis with moderate stenosis of the common femoral artery. There are areas of mild atherosclerosis in the superficial femoral artery without hemodynamically significant stenosis. The popliteal artery, tibial peroneal trunk, anterior and posterior tibial arteries, and peroneal artery are unremarkable. There is a three-vessel runoff at the ankle. LEFT LOWER EXTREMITY VASCULATURE: There is atherosclerosis with mild stenosis of the common femoral artery. The superficial femoral art milagros is diminutive at its origin and occluded approximately 10 cm from the origin. There is reconstitu tion of the distal superficial femoral artery approximately 12 cm above the knee. The popliteal arter y, tibial peroneal trunk, anterior and posterior tibial arteries, and peroneal artery are unremarkabl e. There is a three-vessel runoff at the ankle. ADDITIONAL FINDINGS: Calcified nodules of the visualized lung bases are consistent with old granulomatous disease. The hea rt size is normal. There is a 1.4 cm cyst of the left hepatic lobe. Punctate calcifications in an oth erwise normal spleen likely represent healed granulomatous disease. The pancreas and gallbladder are normal. There is a stable 1.5 cm right adrenal adenoma. The left adrenal gland is unremarkable. Cysts of the kidneys measure up to 12 mm on the right. No pathologically enlarged abdominal or pelvic lymp h nodes are identified. There is no free intraperitoneal gas or evidence of bowel obstruction. There is antegrade intramedullary mitra and interlocking intratrochanteric screw fixation of the right femur. There is moderate lumbar spondylosis. IMPRESSION: 1. Long segment occlusion of the left superficial femoral artery. Otherwise mild atherosclerosis as d escribed above. Reviewed, dictated and finalized at location A. L INSTRUMENTS EXAMINER IMPRESSION: 1. Long segment occlusion of the left superficial femoral artery. Otherwise mil d atherosclerosis as described above.
[2022-04-27 08:52] LABS: Estimated Glomerular Filt Rate 50
== END 2022-04-27 08:24 | disposition home or self-care (01) ==
LOC: CHSIMG 08:24
PROVIDERS: PCP Internal Medicine; Visit Provider Internal Medicine
DX: I73.9 Peripheral vascular disease, unspecified (principal)
CPT/HCPCS: 75635; Q9967

== ENCOUNTER 2022-08-15 14:46 | Outpatient (CLI) | payer MEDICARE, SELFPAY ==
--- NOTE | ~2022-08-15 | CT_ITS ---
EXAMINATION: CT lung screening DATE: 08/15/2022 15:07 INDICATION: Personal history of nicotine dependence, prior smoker with 50 pack year history TECHNIQUE: Computed tomography (CT) of the chest was performed without intravenous contrast. The dose -length product (DLP) was 187.83 mGy-cm. Automated exposure control and iterative reconstruction tech [employer] were employed. COMPARISON: 07/20/2021 FINDINGS: There is mild emphysema. There is a stable 3 mm nodule of the right upper lobe. The lungs a re free of acute opacities. No pleural effusion or pneumothorax. Calcified pulmonary nodules and calc ified right hilar lymph nodes are consistent with old granulomatous disease. No pathologically enlarg ed thoracic lymph nodes are identified. The heart size is normal. Calcified coronary artery atheroscl erosis is noted. Punctate calcifications in an otherwise normal spleen likely represent healed granul omatous disease. There is a chronic T12 superior endplate compression fracture without change. IMPRESSION: 1. Lung-RADS category 2: Benign appearance or behavior. Continue annual screening with noncontrast lo w-dose chest CT in 12 months. Reviewed, dictated and finalized at location F. IMPRESSION: 1. Lung-RADS category 2: Benign appearance or behavior. Continue annual screeni ng with noncontrast low-dose chest CT in 12 months.
== END 2022-08-15 14:47 | disposition home or self-care (01) ==
LOC: CHSIMG 14:47
PROVIDERS: PCP Internal Medicine; Visit Provider Internal Medicine
DX: Z12.2 Encounter for screening for malignant neoplasm of respiratory organs (principal); F17.210 Nicotine dependence, cigarettes, uncomplicated
CPT/HCPCS: 71271

== ENCOUNTER 2022-12-06 11:47 | Outpatient (CLI) | payer MEDICARE, SELFPAY ==
[2022-12-06 12:01] LABS: Basophils Absolute Auto 0.03 K/mm3 (0.00-0.10); Basophils Percent Auto 0.4 % (0.0-1.0); Eosinophils Absolute Auto 0.08 K/mm3 (0.02-0.50); Eosinophils Percent Auto 1.2 % (1.0-6.0); Hematocrit 42.3 % (35.0-42.0); Immature Granulocyte Absolute 0.04 K/mm3 (0.00-0.00); Immature Granulocyte Percent A 0.6 % (0.0-0.0); Mean Corpuscular HGB Conc 33.1 g/dL (32.0-36.0); Mean Corpuscular Hemoglobin 29.9 pg (27.0-31.0); Mean Corpuscular Volume 90.4 fL (78.0-102.0); Mean Platelet Volume 8.8 fl (9.2-11.8); Monocytes Absolute Auto 0.52 K/mm3 (0.10-0.90); Monocytes Percent Auto 7.7 % (2.0-11.0); Neutrophils Absolute Auto 3.4 K/mm3 (1.7-7.2); Neutrophils Percent Auto 50.1 % (50.0-70.0); Platelet Count Result 227 K/mm3 (150-420); Red Blood Count 4.68 M/mm3 (4.20-5.40); Red Cell Distribution Width 13.7 % (11.6-14.4); White Blood Count 6.8 K/mm3 (4.8-10.8)
[2022-12-06 12:29] LABS: Hemoglobin A1C 6.3 % (<5.7)
[2022-12-06 13:09] LABS: Alanine Aminotransferase 39 U/L (14-59); Albumin Level 4.2 g/dL (3.4-5.0); Alkaline Phosphatase 246 U/L (46-116); Anion Gap 11 mmol/L (8-16); Aspartate Amino Transferase 19 U/L (15-37); Bilirubin,Total 0.7 mg/dL (0.00-1.00); Blood Urea Nitrogen 8 mg/dL (7-18); Calcium 9.7 mg/dL (8.5-10.1); Carbon Dioxide 32 mmol/L (21-32); Chloride 100 mmol/L (98-108); Cholesterol 140 mg/dL (0-200); Estimated Glomerular Filt Rate 54; Glucose 112 mg/dL (70-99); HDL Direct 45 mg/dL (40-60); LDL Cholesterol Calculated 68 mg/dL (<130); Osmolality Calculated 295 mOsm/kg (285-295); Potassium 4.4 mmol/L (3.5-5.1); Sodium 143 mmol/L (136-145); Total Protein 7.4 g/dL (6.4-8.2); Triglycerides 133 mg/dL (0-150)
== END 2022-12-06 11:48 | disposition home or self-care (01) ==
LOC: CHSLAB 11:49
PROVIDERS: PCP Family Medicine; Visit Provider Family Medicine
DX: E11.9 Type 2 diabetes mellitus without complications (principal); I10 Essential (primary) hypertension
CPT/HCPCS: 36415; 80053; 80061; 83036; 84550; 85025

== ENCOUNTER 2022-12-11 08:45 | Outpatient (CLI) | payer MEDICARE, SELFPAY ==
[2022-12-11 08:53] LABS: Appearance Urine Clear (Clear); Bilirubin Urine Negative (Negative); Blood Urine Negative (Negative); Glucose Urine UA Negative (Negative); Ketones Urine Negative (Negative); Leukocyte Esterase Ur Trace LEU/UL (Negative); Nitrate Urine Negative (Negative); Protein Urine Negative (Negative); Urobilinogen Urine 0.2 mg/dL (0.2-1.0)
[2022-12-11 09:02] LABS: Add Urine Microscopic? YES; Bacteria Urine 3+ /hpf; Color Urine Light Yellow (Yellow); RBC Urine None seen /hpf (0-2); Squamous Epithelial Cell Urine Occasional /hpf (Few)
== END 2022-12-11 08:46 | disposition home or self-care (01) ==
LOC: CHSLAB 08:47
PROVIDERS: PCP Family Medicine; Visit Provider Family Medicine
DX: N39.0 Urinary tract infection, site not specified (principal)
CPT/HCPCS: 81001; 87077; 87086; 87088; 87186

== ENCOUNTER 2023-01-05 11:29 | Outpatient (NON) | payer MEDICARE, SELFPAY ==
[2023-01-05 11:43] LABS: Appearance Urine Clear (Clear); Bilirubin Urine Negative (Negative); Blood Urine Negative (Negative); Color Urine Light Yellow (Yellow); Glucose Urine UA Negative (Negative); Ketones Urine Negative (Negative); Leukocyte Esterase Ur Negative (Negative); Nitrate Urine Negative (Negative); Protein Urine Negative (Negative); Specific Grav Ur 1.025 (1.010-1.020); Urobilinogen Urine 0.2 mg/dL (0.2-1.0)
[2023-01-05 12:34] LABS: Add Urine Microscopic? NO
== END 2023-01-05 11:30 | disposition home or self-care (01) ==
LOC: CHSLAB 11:30
PROVIDERS: Visit Provider Nurse Practitioner Family
DX: N39.0 Urinary tract infection, site not specified (principal)
CPT/HCPCS: 81003; 87077; 87086; 87088; 87186

== ENCOUNTER 2023-02-02 13:32 | Outpatient (NON) | payer MEDICARE, SELFPAY | END 2023-02-02 13:33 | disposition home or self-care (01) | LOC: CHSLAB 13:38 | PROVIDERS: Visit Provider Family Medicine | DX: N39.0 Urinary tract infection, site not specified (principal) | CPT/HCPCS: 87077; 87086; 87088; 87186 ==

== ENCOUNTER 2023-03-08 13:56 | Outpatient (CLI) | payer MEDICARE, SELFPAY ==
[2023-03-08 14:16] LABS: Basophils Absolute Auto 0.02 K/mm3 (0.00-0.10); Basophils Percent Auto 0.3 % (0.0-1.0); Eosinophils Absolute Auto 0.08 K/mm3 (0.02-0.50); Eosinophils Percent Auto 1.1 % (1.0-6.0); Hematocrit 42.5 % (35.0-42.0); Hemoglobin 14.7 g/dL (11.7-13.8); Immature Granulocyte Absolute 0.05 K/mm3 (0.00-0.00); Immature Granulocyte Percent A 0.7 % (0.0-0.0); Lymphocytes Absolute Auto 2.65 K/mm3 (1.10-4.50); Lymphocytes Percent Auto 35.4 % (18.0-42.0); Mean Corpuscular HGB Conc 34.6 g/dL (32.0-36.0); Mean Corpuscular Hemoglobin 31.5 pg (27.0-31.0); Mean Corpuscular Volume 91.2 fL (78.0-102.0); Mean Platelet Volume 8.9 fl (9.2-11.8); Monocytes Absolute Auto 0.54 K/mm3 (0.10-0.90); Monocytes Percent Auto 7.2 % (2.0-11.0); Neutrophils Absolute Auto 4.2 K/mm3 (1.7-7.2); Neutrophils Percent Auto 55.3 % (50.0-70.0); Platelet Count Result 261 K/mm3 (150-420); Red Blood Count 4.66 M/mm3 (4.20-5.40); Red Cell Distribution Width 13.4 % (11.6-14.4); White Blood Count 7.5 K/mm3 (4.8-10.8)
[2023-03-08 14:26] LABS: Hemoglobin A1C 6.4 % (<5.7)
[2023-03-08 14:47] LABS: Alanine Aminotransferase 23 U/L (14-59); Alkaline Phosphatase 146 U/L (46-116); Anion Gap 12 mmol/L (8-16); Aspartate Amino Transferase 11 U/L (15-37); Bilirubin,Total 0.5 mg/dL (0.00-1.00); Blood Urea Nitrogen 20 mg/dL (7-18); Calcium 9.5 mg/dL (8.5-10.1); Carbon Dioxide 29 mmol/L (21-32); Chloride 101 mmol/L (98-108); Cholesterol 146 mg/dL (0-200); Estimated Glomerular Filt Rate 55; Glucose 89 mg/dL (70-99); HDL Direct 33 mg/dL (40-60); LDL Cholesterol Calculated 81 mg/dL (<130); Osmolality Calculated 295 mOsm/kg (285-295); Potassium 4.1 mmol/L (3.5-5.1); Sodium 142 mmol/L (136-145); Total Protein 6.9 g/dL (6.4-8.2); Triglycerides 159 mg/dL (0-150)
[2023-03-08 16:45] LABS: Appearance Urine Clear (Clear); Bilirubin Urine Negative (Negative); Blood Urine Trace-Intact (Negative); Color Urine Light Yellow (Yellow); Glucose Urine UA Negative (Negative); Ketones Urine Negative (Negative); Leukocyte Esterase Ur Negative (Negative); Nitrate Urine Negative (Negative); Protein Urine Negative (Negative); Specific Grav Ur 1.015 (1.010-1.020); Urobilinogen Urine 0.2 mg/dL (0.2-1.0)
[2023-03-08 16:52] LABS: Add Urine Microscopic? YES; Bacteria Urine Trace /hpf; RBC Urine 0-2 /hpf (0-2); Squamous Epithelial Cell Urine Rare /hpf (Few); WBC Urine 0-3 /hpf (0-3)
== END 2023-03-08 13:57 | disposition home or self-care (01) ==
LOC: CHSLAB 13:57
PROVIDERS: PCP Family Medicine; Visit Provider Nurse Practitioner Family
DX: E78.5 Hyperlipidemia, unspecified (principal); I10 Essential (primary) hypertension; E11.9 Type 2 diabetes mellitus without complications; J44.9 Chronic obstructive pulmonary disease, unspecified; N39.0 Urinary tract infection, site not specified
CPT/HCPCS: 36415; 80053; 80061; 81001; 83036; 85025

== ENCOUNTER 2023-03-13 12:27 | Outpatient (CLI) | payer MEDICARE, SELFPAY ==
--- NOTE | ~2023-03-13 | MM_ITS ---
EXAMINATION: MM screening [facility] BI w billie HISTORY: Screening mammogram TECHNIQUE: Craniocaudal and mediolateral oblique 3-D tomosynthesis images were obtained and synthetic 2-D images were generated. CAD analysis was submitted and interpreted. COMPARISON: 02/23/2022 bilateral screening mammogram 11/17/2019 bilateral mammogram, left complete breast ultrasound examination 04/15/2019 limited left breast ultrasound 04/07/2019 diagnostic bilateral mammogram and limited right breast ultrasound BREAST PARENCHYMAL COMPOSITION: There are scattered areas of fibroglandular density. FINDINGS: Stable architectural distortion with spiculation in the anterior upper outer quadrant of th e left breast at site of previous reportedly benign biopsy. Scattered bilateral benign solitary group ed microcalcifications. There is no evidence of suspicious mass, calcification, or architectural dist ortion to suggest malignancy in either breast. There has been no suspicious interval change. IMPRESSION: 1. No mammographic evidence of malignancy. 2. Recommend routine screening mammography in one year. BI-RADS Category 2: Benign finding(s). Reviewed, dictated and finalized at location C.
== END 2023-03-13 12:28 | disposition home or self-care (01) ==
LOC: CHSIMG 12:28
PROVIDERS: PCP Family Medicine; Visit Provider Family Medicine
DX: Z12.31 Encounter for screening mammogram for malignant neoplasm of breast (principal)
CPT/HCPCS: 77063; 77067

== ENCOUNTER 2023-03-29 15:20 | Outpatient (CLI) | payer MEDICARE, SELFPAY ==
[2023-03-29 15:45] LABS: Appearance Urine Clear (Clear); Bilirubin Urine Negative (Negative); Blood Urine Trace-Intact (Negative); Color Urine Light Yellow (Yellow); Glucose Urine UA Negative (Negative); Ketones Urine Negative (Negative); Leukocyte Esterase Ur Negative (Negative); Nitrate Urine Positive (Negative); Protein Urine Negative (Negative); Urobilinogen Urine 0.2 mg/dL (0.2-1.0)
[2023-03-29 15:48] LABS: Add Urine Microscopic? YES; Bacteria Urine 4+ /hpf; Squamous Epithelial Cell Urine Few /hpf (Few); WBC Urine None seen /hpf (0-3)
== END 2023-03-29 15:21 | disposition home or self-care (01) ==
LOC: CHSLAB 15:21
PROVIDERS: PCP Family Medicine; Visit Provider Family Medicine
DX: N39.0 Urinary tract infection, site not specified (principal)
CPT/HCPCS: 81001

== ENCOUNTER 2023-05-22 13:09 | Outpatient (CLI) | payer MEDICARE, SELFPAY ==
[2023-05-22 14:38] LABS: Alanine Aminotransferase 38 U/L (14-59); Alkaline Phosphatase 141 U/L (46-116); Anion Gap 9 mmol/L (8-16); Aspartate Amino Transferase 22 U/L (15-37); Bilirubin,Total 0.6 mg/dL (0.00-1.00); Blood Urea Nitrogen 18 mg/dL (7-18); Calcium 9.2 mg/dL (8.5-10.1); Carbon Dioxide 30 mmol/L (21-32); Chloride 101 mmol/L (98-108); Estimated Glomerular Filt Rate 54; Glucose 88 mg/dL (70-99); Osmolality Calculated 290 mOsm/kg (285-295); Sodium 140 mmol/L (136-145); Total Protein 6.9 g/dL (6.4-8.2)
== END 2023-05-22 13:10 | disposition home or self-care (01) ==
LOC: CHSLAB 13:11
PROVIDERS: PCP Family Medicine; Visit Provider Family Medicine
DX: I10 Essential (primary) hypertension (principal)
CPT/HCPCS: 36415; 80053

== ENCOUNTER 2023-08-02 12:33 | Outpatient (CLI) | payer MEDICARE, SELFPAY ==
[2023-08-02 15:04] LABS: Anion Gap 12 mmol/L (8-16); Blood Urea Nitrogen 23 mg/dL (7-18); Calcium 8.9 mg/dL (8.5-10.1); Carbon Dioxide 28 mmol/L (21-32); Chloride 100 mmol/L (98-108); Estimated Glomerular Filt Rate > 60; Glucose 116 mg/dL (70-99); Osmolality Calculated 294 mOsm/kg (285-295); Phosphorus 3.6 mg/dL (2.6-4.7); Potassium 3.5 mmol/L (3.5-5.1); Sodium 140 mmol/L (136-145)
== END 2023-08-02 12:34 | disposition home or self-care (01) ==
PROVIDERS: PCP Nurse Practitioner Family; Visit Provider Nurse Practitioner Family
DX: R94.4 Abnormal results of kidney function studies (principal)
CPT/HCPCS: 36415; 80069

== ENCOUNTER 2023-09-06 10:01 | Outpatient (CLI) | payer MEDICARE, SELFPAY ==
--- NOTE | ~2023-09-06 | XR_ITS ---
Clinical Indication: COPD PA and lateral views of the chest: Comparison: None Findings: Calcified right midlung granuloma present. The lungs are otherwise clear, without evidence of focal consolidation or pleural effusion. Cardiomediastinal silhouette is within normal limits. Rufus bon and soft tissues are unremarkable. Impression: No acute abnormality seen. Reviewed, dictated and finalized at location . Impression: No acute abnormality seen.
[2023-09-06 10:16] LABS: Basophils Absolute Auto 0.02 K/mm3 (0.00-0.10); Basophils Percent Auto 0.3 % (0.0-1.0); Eosinophils Absolute Auto 0.07 K/mm3 (0.02-0.50); Hemoglobin 14.4 g/dL (11.7-13.8); Immature Granulocyte Absolute 0.05 K/mm3 (0.00-0.00); Immature Granulocyte Percent A 0.7 % (0.0-0.0); Mean Corpuscular HGB Conc 33.5 g/dL (32-36); Mean Corpuscular Volume 92.5 fL (78.0-102.0); Mean Platelet Volume 9.1 fl (9.2-11.8); Monocytes Absolute Auto 0.43 K/mm3 (0.10-0.90); Monocytes Percent Auto 6.4 % (2.0-11.0); Neutrophils Absolute Auto 3.89 K/mm3 (1.70-7.20); Neutrophils Percent Auto 57.6 % (50.0-70.0); Platelet Count Result 201 K/mm3 (150-420); Red Blood Count 4.65 M/mm3 (4.20-5.40); Red Cell Distribution Width 12.7 % (11.6-14.4); White Blood Count 6.8 K/mm3 (4.8-10.8)
[2023-09-06 11:08] LABS: Alanine Aminotransferase 32 U/L (14-59); Albumin Level 4.1 g/dL (3.4-5.0); Alkaline Phosphatase 148 U/L (46-116); Anion Gap 10 mmol/L (4-12); Aspartate Amino Transferase 17 U/L (15-37); Bilirubin,Total 0.5 mg/dL (0.00-1.00); Blood Urea Nitrogen 22 mg/dL (7-18); Calcium 8.8 mg/dL (8.5-10.1); Carbon Dioxide 31 mmol/L (21-32); Chloride 104 mmol/L (98-108); Estimated Glomerular Filt Rate 56; Glucose 85 mg/dL (70-99); Osmolality Calculated 302 mOsm/kg (285-295); Potassium 3.9 mmol/L (3.5-5.1); Sodium 145 mmol/L (136-145); Total Protein 6.9 g/dL (6.4-8.2)
== END 2023-09-06 10:02 | disposition home or self-care (01) ==
LOC: CHSLAB 10:02
PROVIDERS: PCP Family Medicine; Visit Provider Family Medicine
DX: J44.9 Chronic obstructive pulmonary disease, unspecified (principal)
CPT/HCPCS: 36415; 71046; 80053; 85025

== ENCOUNTER 2023-11-30 12:33 | Outpatient (CLI) | payer MEDICARE, SELFPAY ==
--- NOTE | ~2023-11-30 | CT_ITS ---
EXAMINATION: CT sinus wo con DATE: 11/30/2023 13:08 INDICATION: Chronic sinusitis TECHNIQUE: Computed tomography (CT) of the paranasal sinuses was performed without intravenous contra st. The dose-length product was 244.00 mGy-cm. Automated exposure control and iterative reconstructio n technique were employed. COMPARISON: CT dated 02/05/2020 FINDINGS: There is mucosal thickening of the sphenoid sinuses. No significant nasal septal deviation. There is mucosal thickening in the anterior ethmoid air cells on the left. Ostiomeatal units are pat ent. There is mild hypertrophy of the left inferior turbinate. Mastoids are pneumatized. IMPRESSION: 1. Mild sinus disease. Reviewed, dictated and finalized at location B. IMPRESSION: 1. Mild sinus disease.
[2023-11-30 13:21] LABS: Albumin Level 4.2 g/dL (3.4-5.0); Anion Gap 11 mmol/L (4-12); Blood Urea Nitrogen 19 mg/dL (7-18); Calcium 9.2 mg/dL (8.5-10.1); Carbon Dioxide 30 mmol/L (21-32); Chloride 95 mmol/L (98-108); Estimated Glomerular Filt Rate 54; Glucose 95 mg/dL (70-99); Osmolality Calculated 284 mOsm/kg (285-295); Phosphorus 2.8 mg/dL (2.6-4.7); Potassium 3.9 mmol/L (3.5-5.1); Sodium 136 mmol/L (136-145)
== END 2023-11-30 12:34 | disposition home or self-care (01) ==
LOC: CHSIMG 12:35
PROVIDERS: PCP Nurse Practitioner Family; Visit Provider Family Medicine
DX: J32.9 Chronic sinusitis, unspecified (principal); I73.9 Peripheral vascular disease, unspecified
CPT/HCPCS: 36415; 70486; 80069

== ENCOUNTER 2024-01-25 16:34 | Outpatient (NON) | payer MEDICARE, SELFPAY | END 2024-01-25 16:35 | disposition home or self-care (01) | LOC: CHSLAB 16:36 | PROVIDERS: Visit Provider Family Medicine | DX: E88.2 Lipomatosis, not elsewhere classified (principal) | CPT/HCPCS: 88305 ==

== ENCOUNTER 2024-01-31 09:55 | Outpatient (CLI) | payer MEDICARE, SELFPAY ==
--- NOTE | ~2024-01-31 | MR_ITS ---
EXAMINATION: MR brain IAC wo con DATE: 01/31/2024 10:53 INDICATION: Chronic tremors. TECHNIQUE: Magnetic resonance imaging (MRI) of the brain, brainstem, and internal auditory canals was performed without intravenous contrast. COMPARISON: CT sinuses 11/30/2023 FINDINGS: There are scattered areas of nonspecific increased T2-weighted signal intensity in the cere bral white matter and margarito. There is no intracranial hemorrhage, acute infarction, or abnormal intrac ranial mass lesion. The ventricles are normal in size. There are likely changes of ocular lens replac ement surgeries. There is mild mucosal thickening in the paranasal sinuses. The internal auditory can als, inner ears, and tympanic cavities are normal. The mastoid air cells are normal. IMPRESSION: 1. Moderate nonspecific cerebral white matter disease and pontine disease, which likely represents ch ronic small vessel ischemic disease. Reviewed, dictated and finalized at location A. IMPRESSION: 1. Moderate nonspecific cerebral white matter disease and pontine disease, whic h likely represents chronic small vessel ischemic disease.
== END 2024-01-31 09:56 | disposition home or self-care (01) ==
PROVIDERS: PCP Family Medicine; Visit Provider Family Medicine
DX: G25.9 Extrapyramidal and movement disorder, unspecified (principal); R90.82 White matter disease, unspecified; G93.89 Other specified disorders of brain
CPT/HCPCS: 70551

== ENCOUNTER 2024-03-17 12:21 | Outpatient (CLI) | payer MEDICARE, SELFPAY ==
--- NOTE | ~2024-03-17 | MM_ITS ---
EXAMINATION: MM screening [facility] BI w billie HISTORY: Screening mammogram TECHNIQUE: Craniocaudal and mediolateral oblique 3-D tomosynthesis images were obtained and synthetic 2-D images were generated. CAD analysis was submitted and interpreted. COMPARISON: 03/13/2023, 02/23/2022, 04/07/2019 BREAST PARENCHYMAL COMPOSITION:Not Dense. There are scattered areas of fibroglandular density. FINDINGS: Stable distortion in the central left breast. There is apparent increasing 7 mm mass in the lower, central left breast. There is a stable additional 8 mm mass in the posterior lower, inner lef t breast. No suspicious abnormality seen in the right breast. IMPRESSION: Increasing 7 mm central lower left breast mass. Spot compression views and ultrasound are recommende d for further evaluation. Additional left breast mass and architectural distortion left breast are unchanged, as detailed above . BI-RADS Category 0: Incomplete: Needs additional imaging evaluation. Reviewed, dictated and finalized at [facility]. IMPRESSION: Increasing 7 mm central lower left breast mass. Spot compression views and ult rasound are recommended for further evaluation. Additional left breast mass and architectural distortion left breast are unchan ged, as detailed above. BI-RADS Category 0: Incomplete: Needs additional imaging evaluation.
== END 2024-03-17 12:22 | disposition home or self-care (01) ==
LOC: CHSIMG 12:22
PROVIDERS: PCP Family Medicine; Visit Provider Nurse Practitioner Family
DX: Z12.31 Encounter for screening mammogram for malignant neoplasm of breast (principal); R92.8 Other abnormal and inconclusive findings on diagnostic imaging of breast
CPT/HCPCS: 77063; 77067

== ENCOUNTER 2024-03-24 08:48 | Outpatient (CLI) | payer MEDICARE, SELFPAY ==
--- NOTE | ~2024-03-24 | MMUS_ITS ---
EXAMINATION: MM diagnostic jacquie LT w billie, US breast LT complete HISTORY: Follow-up left breast abnormality. TECHNIQUE: Additional 3-D tomosynthesis images of the left breast were performed and synthetic 2-D im ages were generated. CAD analysis was submitted and interpreted. High resolution complete left breast ultrasound was performed. COMPARISON: Comparison to multiple prior studies sequentially, with oldest reviewed study dated 10/02. BREAST PARENCHYMAL COMPOSITION: Not dense: There are scattered areas of fibroglandular density. FINDINGS: MAMMOGRAPHIC FINDINGS: There is stable architectural distortion in the upper outer quadrant of the left breast, anterior-mid dle depth, consistent with previous lumpectomy site. Low-density lesion in the lower central aspect o f the left breast is less apparent with spot compression views, although persistent. ULTRASOUND: Complete US of all 4 quadrants of the left breast/s and retroareolar region was reviewed. At 1:00 doug r the nipple there is an oval hypoechoic 3 mm mass, likely benign complicated cyst. No internal vascu larity or posterior features. At 10:00, 5 cm from the nipple there is a 2 mm cyst. At 10:00, 5 cm fro m the nipple there is a 5 mm oval hypoechoic mass with parallel orientation, heterogeneous internal e chotexture, most likely benign, possibly intramammary lymph node. At the area of scarring in the left breast there is a hypoechoic mass with posterior shadowing measuring up to 1.4 cm. Given the lack of interval change on mammography this is likely benign postsurgical fibrosis. IMPRESSION: 1. Probable benign findings of the left breast. 2. Recommend 6 month follow-up diagnostic left mammogram and Limited left breast ultrasound BI-RADS category 3, probably benign findings. Reviewed, dictated and finalized at location B. DING SPECIALIST IMPRESSION: 1. Probable benign findings of the left breast. 2. Recommend 6 month follow-up diagnostic left mammogram and Limited left breas t ultrasound BI-RADS category 3, probably benign findings.
== END 2024-03-24 08:49 | disposition home or self-care (01) ==
LOC: CHSIMG 08:49
PROVIDERS: PCP Family Medicine; Visit Provider Nurse Practitioner Family
DX: R92.8 Other abnormal and inconclusive findings on diagnostic imaging of breast (principal); N63.20 Unspecified lump in the left breast, unspecified quadrant
CPT/HCPCS: 76641; 77061; 77065; G0279

== ENCOUNTER 2024-04-30 12:02 | Outpatient (CLI) | payer MEDICARE, SELFPAY ==
--- NOTE | ~2024-04-30 | XR_ITS ---
EXAMINATION: XR chest 2V 04/30/2024 12:41 INDICATION: Cough and shortness of breath PROCEDURE: Two-view chest COMPARISON: Comparison to multiple prior studies sequentially, with oldest reviewed study dated 02/04. FINDINGS: The lungs are clear. There is a calcified granuloma in the right lung base. The cardiomedia stinal silhouette is within normal limits. There are no pleural effusions. There is no pneumothorax suspected. IMPRESSION: 1: NO ACUTE CARDIOPULMONARY DISEASE. Reviewed, dictated and finalized at location B. AIN ASSISTANT
[2024-04-30 12:23] LABS: Basophils Absolute Auto 0.03 K/mm3 (0.00-0.10); Basophils Percent Auto 0.4 % (0.0-1.0); Eosinophils Absolute Auto 0.08 K/mm3 (0.02-0.50); Eosinophils Percent Auto 1.1 % (1.0-6.0); Hematocrit 42.1 % (35.0-42.0); Hemoglobin 14.6 g/dL (11.7-13.8); Immature Granulocyte Absolute 0.08 K/mm3 (0.00-0.00); Immature Granulocyte Percent A 1.1 % (0.0-0.0); Lymphocytes Absolute Auto 2.23 K/mm3 (1.10-4.50); Lymphocytes Percent Auto 29.7 % (18.0-42.0); Mean Corpuscular HGB Conc 34.7 g/dL (32-36); Mean Corpuscular Hemoglobin 31.8 pg (27.0-31.0); Mean Corpuscular Volume 91.7 fL (78.0-102.0); Mean Platelet Volume 9.1 fl (9.2-11.8); Monocytes Absolute Auto 0.57 K/mm3 (0.10-0.90); Monocytes Percent Auto 7.6 % (2.0-11.0); Neutrophils Absolute Auto 4.53 K/mm3 (1.70-7.20); Neutrophils Percent Auto 60.1 % (50.0-70.0); Platelet Count Result 228 K/mm3 (150-420); Red Blood Count 4.59 M/mm3 (4.20-5.40); Red Cell Distribution Width 13.1 % (11.6-14.4); White Blood Count 7.5 K/mm3 (4.8-10.8)
[2024-04-30 13:11] LABS: Alanine Aminotransferase 40 U/L (14-59); Alkaline Phosphatase 170 U/L (46-116); Anion Gap 10 mmol/L (4-12); Aspartate Amino Transferase 19 U/L (15-37); Bilirubin,Total 0.6 mg/dL (0.00-1.00); Blood Urea Nitrogen 25 mg/dL (7-18); Calcium 9.6 mg/dL (8.5-10.1); Carbon Dioxide 31 mmol/L (21-32); Chloride 101 mmol/L (98-108); Estimated Glomerular Filt Rate 45; Glucose 113 mg/dL (70-99); Osmolality Calculated 299 mOsm/kg (285-295); Potassium 4.3 mmol/L (3.5-5.1); Sodium 142 mmol/L (136-145); Total Protein 6.8 g/dL (6.4-8.2)
== END 2024-04-30 12:03 | disposition home or self-care (01) ==
LOC: CHSLAB 12:03
PROVIDERS: PCP Family Medicine; Visit Provider Family Medicine
DX: R05.9 Cough, unspecified (principal)
CPT/HCPCS: 36415; 71046; 80053; 85025

== ENCOUNTER 2024-09-26 10:45 | Outpatient (CLI) | payer MEDICARE, SELFPAY ==
--- OUTSIDE RECORDS SUMMARY | 2024-09-26 10:48 | XMS_ITS | Clinical Summary ---
Author Organization [facility] Address [address] [place] [address] Care Team Providers Care Cigar Roller Name Role Phone Michele Jaramillo MD Unavailable Gal Mendez DO Primary Care Provider [phone] Allergies Active Allergy Reactions Criticality Noted Date Comments Levofloxacin Shakiness Medium 11/03/2018 Penicillins Rash Medium 01/14/2018 Reaction: Rash, Medications fluticasone propionate 220 MCG/ACT inhaler Inhale 1 puff into the lungs 2 (two) times daily. Active cetirizine 10 MG tablet Take 1 tablet (10 mg total) by mouth daily. Active aspirin EC (ECOTRIN) 81 MG tablet Take 1 tablet (81 mg total) by mouth daily. Active atorvastatin 40 MG tablet Take 1 tablet (40 mg total) by mouth daily. 9 Active cilostazol 100 MG tablet Take 1 tablet (100 mg total) by mouth 2 (two) times daily. 60 tablet 6 0 Active COMPRESSION STOCKINGS 20-30 MMHG Compression stockings, knee-high, open or closed toe Dx: I83.893 1 Container 6 0 Active allopurinol (ZYLOPRIM) 100 MG tablet Take 1 tablet (100 mg total) by mouth daily. 3 Active furosemide (LASIX) 40 MG tablet Take 1 tablet (40 mg total) by mouth 2 (two) times daily. 3 Active citalopram (CELEXA) 20 MG tablet Take 2 tablets (40 mg total) by mouth daily. 3 Active Active Problems Problem Noted Date Diagnosed Date Community acquired pneumonia 11/11/2022 UTI (urinary tract infection) 10/23/2022 Femur fracture, right 02/05/2020 Chronic venous insufficiency 11/25/2019 Lymphedema 11/25/2019 Constipation 12/27/2018 Asymptomatic bacteriuria 12/27/2018 PAD (peripheral artery disease) 02/05/2018 Smoker 02/05/2018 Hyperlipidemia, unspecified hyperlipidemia type 02/05/2018 Essential hypertension 02/05/2018 Symptomatic varicose veins, unspecified laterali ty 02/05/2018 GERD (gastroesophageal reflux disease) 8 Spasmodic torticollis 02/11/2015 Arterial insufficiency COPD (chronic obstructive pu lmonary disease) ([facility]) Resolved Problems Problem Noted Date Diagnosed Date Resolved Date Nausea and vomiting 12/26/2018 12/28/19 19 Nausea & vomiting 12/26/2018 12/27/2018 Family History Medical History Relation Comments Aneurysm Father Cancer Mother Relation Status Comments Brother Alive gout Father brain aneurysm Maternal Grandfather Maternal Grandmother Mother Paternal Grandfather Paternal Grandmother Social History Tobacco Use Types Packs/Day Years Used Date Smoking Tobacco: Every Day Cigarettes 1.5 50 Smokeless Tobacco: Never Tobacco Cessation:Ready to Q uit: Not Asked; Counseling Given: Not Answered Alcohol Use Standard Drinks/Week Comments Not Currently 0 (1 standard drink = 0.6 oz pur e alcohol) occasionally Humiliation, Afraid, Rape, and Kick questionnair e Answer Date Recorded Within the last year, have y ou been afraid of your partner or ex-partner? No 11/11/2022 Within the last year, have y ou been humiliated or emotionally abused in other ways by your partner or ex-partner? No Within the last year, have y ou been kicked, hit, slapped, or otherwise physically hurt by your partner or ex-partner? No 11/11/2022 Within the last year, have y ou been raped or forced to have any kind of sexual activity by your partner or ex-partner? No 11/11/2022 Overall Financial Resource Strain (CARDIA) Answe r Date Recorded How hard is it for you to pa y for the very basics like food, housing, medical care, and heating? Not hard at all 11/11/2022 Hunger Vital Sign Answer Date Recorded Within the past 12 months, y ou worried that your food would run out before you got the money to buy more. Never true 11/12/19 Within the past 12 months, t he food you bought just didn't last and you didn't have money to get more. Never true 11/11/2022 PRAPARE - Transportation Answer Date Re corded In the past 12 months, has l ack of transportation kept you from medical appointments or from getting medications? No 10/20 In the past 12 months, has l ack of transportation kept you from meetings, work, or from getting things needed for daily living? No 11/11/2022 Housing Stability Vital Sign Answer [place] e Recorded In the last 12 months, was t here a time when you were not able to pay the mortgage or rent on time? No 11/11/2022 In the last 12 months, how many places have you lived? 1 11/11/2022 In the last 12 months, was t here a time when you did not have a steady place to sleep or slept in a halfway (including now)? No 11/11/2022 Comments No Sex and Gender Information Value Date Recorded Sex Assigned at Not on file Legal Sex Female 9:45 AM CDT Gender Identity Not on file Sexual Orientation Not on file Occupation Industry Job Start Date Job End Date retired Not on file Not on file Not on file Last Filed Vital Signs Vital Sign Reading Time Taken Comments Blood Pressure 118/62 07/25/2023 8:20 AM ACOUSTIC WARFARE ANALYST Pulse 66 07/25/2023 8:20 AM ACOUSTIC WARFARE ANALYST Temperature 36.5 C (97.7 F) 07/25/2023 7:09 AM ACOUSTIC WARFARE ANALYST Respiratory Rate 20 07/25/2023 8:20 AM ACOUSTIC WARFARE ANALYST Oxygen Saturation 94% 07/25/2023 8:20 AM ACOUSTIC WARFARE ANALYST Inhaled Oxygen Concentration - - Weight 83.5 kg (184 lb) 07/13/2023 10:20 AM ACOUSTIC WARFARE ANALYST Height 157.5 cm (5' 2 ) 07/13/2023 10:20 AM ACOUSTIC WARFARE ANALYST Body Mass Index 33.65 07/13/2023 10:20 AM ACOUSTIC WARFARE ANALYST Plan of Treatment Health Maintenance Due Date Last Done Comments ASCVD LDL 1945 ASCVD Statin 1945 Hepatitis C 11/03/1965 DTaP, Tdap and Td Vaccines (1 - Tdap) 11/03/1966 Zoster Vaccines (1 of 2) 11/03/1997 Annual Medicare Wellness Visit 11/03/2012 Dexa Scan (General) 11/03/2012 RSV Immunization or 60+ Years (1 - 1-dose 75+ series) 11/03/2022 COVID-19 Vaccine ( season) 2024 09/30/2021, 05/09/2021, 08/17/2020, Additional history exists Pneumococcal Vaccine: 50+ Years Completed 03/06/2018, 03/11/2015 Meningococcal B Vaccine Aged Out No l onger eligible based on patient's age to complete this topic Meningococcal Vaccine Aged Out No rosi jsoe eligible based on patient's age to complete this topic RSV Immunizations Under 20 Months Aged Out No longer eligible based on patient's age to complete this topic Goals Goal Patient Goal Type Associated Problems Recent Progress Patient-Stated? Author Family - family caregiver with be involved in care transitions and discharge planning Lifestyle No Tala Rivers RN Medical Devices Implanted Type Area Steel Cutter Device Identifier Shelf Expiration Date Model / Serial / Lot Iol Tecnis Simplicity Dcb00 - [id number] Implanted:Qty: 1 on 06/27/2023 by Grace Reyes MD at [facility] Lens [employer] DCB00 / / [id number] Iol Tecnis Simplicity Dcb00 - [id number] Implanted:Qty: 1 on 07/25/2023 by Grace Reyes MD at [facility]ens Left: Eye [employer] DCBOO 01/31/2026 DCB00 / / NONE Nail Implanted:Qty: 1 on 02/06/2020 by Fox Toussaint MD at [facility] Right: Leg SYNTHES 12/18/2028 [id number] S / / [id number] Screw Synthes 3.5 Cannulated Tfn 90mm - [id number] Implanted:Qty: 1 on 02/06/2020 by Fox Toussaint MD at [facility] Right: Leg SYNTHES 06/20/2029 [id number] S / / [id number] Screw Synthes 5.0 Ti Locking W/T25 Star 36mm - [id number] Implanted:Qty: 1 on 02/06/2020 by Fox Toussaint MD at [facility] SYNTHES 08/18/2028 [id number] S / / [id number] Explanted Type Area Steel Cutter Device Identifier Shelf Expiration Date Model / Serial / Lot 2.5mm Reaming Tristan With Ball Explanted:Qty: 1 on 02/06/2020 by Fox Toussaint MD at [facility] Right: Leg SYNTHES 09/17/2028 [id number] / / [id number] Wire Explanted:Qty: 4 on 02/06/2020 by Fox Toussaint MD at [facility] Right: Leg SYNTHES 357.399 / / Drill Bit Synthes 4.2mm 3 Fluted 145mm Qc - [id number] Explanted:Qty: 1 on 02/06/2020 at [facility] SYNTHES [id number] / / Insurance [facility] Advance Directives * Full Code (Latest Code Status on File) Date Activated Date Inactivated Comments 11/11/2022 10:26 PM 11/17/2022 5:57 PM * Full Code Date Activated Date Inactivated Comments 10/23/2022 3:46 PM 10/26/2022 4:01 PM * Full Code Date Activated Date Inactivated Comments 12/26/2018 5:54 PM 12/27/2018 3:00 PM Care Teams Cigar Roller Relationship Specialty Start Date End Date Gal Mendez DO [address] [place] [address] PCP - General FAMILY PRACTICE 06/27/23 Michele Jaramillo MD Vascular/Yield Analyst INTERNAL MEDICINE 01/08/18
--- OUTSIDE RECORDS SUMMARY | 2024-09-26 10:48 | XMS_ITS | Referral Summary ---
Author Organization [facility] Address [address] [place] [id number] Care Team Providers Care Skin Care Technician Name Role Phone Ce Thompson MD Primary Care Provider [phone] Allergies Active Allergy Reactions Criticality Noted Date Comments Penicillins Rash Medium 01/14/2018 Reaction: Rash, Medications aspirin 81 mg tabletIndicatio ns:prevention of thrombosis Take 81 mg by mouth every morning Active citalopram (CeleXA) 20 mg tabletIndicatio ns:Anxiety with Depression Take 20 mg by mouth 2 (two) times a day 8 Active ipratropium (ATROVENT) 42 mcg (0.06 %) nasal sprayIndication s:rhinorrhea Administer 2 sprays into each nostril 2 (two) times a day as needed 8 Active spironolactone (ALDACTONE) 100 mg tabletIndicatio ns:hypertension Take 100 mg by mouth every morning 8 Active cholecalciferol (VITAMIN D-3) 50,000 unit capsule once a week. Active albuterol HFA (PROVENTIL HFA,VENTOLIN HFA,PROAIR HFA) 90 mcg/actuation inhaler Inhale 2 puffs as needed for shortness of breath Active atorvastatin (LIPITOR) 40 mg tabletIndicatio ns:hyperlipidem ia Take 40 mg by mouth nightly 9 Active cetirizine (ZyrTEC) 10 mg tabletIndicatio ns:Seasonal Allergic Rhinitis Take 10 mg by mouth every morning Active fluticasone propionate (FLOVENT HFA) 220 mcg/actuation inhaler Inhale 1 puff 2 (two) times a day Active raNITIdine (ZANTAC) 150 mg tabletIndicatio ns:Heartburn Take 150 mg by mouth 2 (two) times a day Active potassium chloride ER 10 mEq CR tabletIndicatio ns:hypokalemia prevention Take 10 mEq by mouth nightly 1 Active furosemide (LASIX) 80 mg tabletIndicatio ns:Edema Take 80 mg by mouth every morning Active psyllium 0.52 gram capsuleIndicati ons:constipatio n Take 0.52 g by mouth 2 (two) times a day Active oxyCODONE-aceta minophen (PERCOCET) 5-325 mg per tabletIndicatio ns:Pain Take 1 tablet by mouth every 4 (four) hours as needed for pain 8 tablet 2 Active docusate sodium (COLACE) 100 mg capsuleIndicati ons:constipatio n Take 1 capsule (100 mg total) by mouth 2 (two) times a day with a glass of water 8 capsule 2 Active Active Problems Problem Noted Date Diagnosed Date Breast mass, left 04/30/2021 Overview (04/30/2021): Added automatically from request for surgery [id number] Spasmodic torticollis 02/11/2015 Social History Tobacco Use Types Packs/Day Years Used Date Smoking Tobacco: Every Day Cigarettes 0.5 59.4 Started: 1963 Smokeless Tobacco: Never Tobacco Cessation:Ready to Q uit: Yes; Counseling Given: Yes Alcohol Use Standard Drinks/Week Comments Yes 0 (1 standard drink = 0.6 oz pur e alcohol) AUDIT-C Answer Date Recorded Q1: How often do you have a drink containing alc ohol? Never 07/01/2021 Q2: How many drinks containi ng alcohol do you have on a typical day when you are drinking? 1 or 2 07/01/2021 Q3: How often do you have six or more drinks on one occasion? Never 07/01/2021 Comments No Sex and Gender Information Value Date Recorded Sex Assigned at Not on file Legal Sex Female 2:31 AM SENIOR OPERATIONS MANAGER Gender Identity Not on file Sexual Orientation Not on file Last Filed Vital Signs Vital Sign Reading Time Taken Comments Blood Pressure 106/48 07/01/2021 2:00 PM SENIOR OPERATIONS MANAGER Pulse 78 07/01/2021 2:00 PM SENIOR OPERATIONS MANAGER Temperature 36.3 C (97.3 F) 07/01/2021 1:10 PM SENIOR OPERATIONS MANAGER Respiratory Rate 15 07/01/2021 2:00 PM SENIOR OPERATIONS MANAGER Oxygen Saturation 97% 07/01/2021 2:00 PM SENIOR OPERATIONS MANAGER Inhaled Oxygen Concentration - - Weight 83 kg (182 lb 15.7 oz) 07/21/2021 3:53 PM SENIOR OPERATIONS MANAGER Height 157.5 cm (5' 2 ) 07/21/2021 3:53 PM SENIOR OPERATIONS MANAGER Body Mass Index 33.47 07/21/2021 3:53 PM SENIOR OPERATIONS MANAGER Plan of Treatment Not on file Medical Devices Implanted Type Area Title I Paraprofessional Device Identifier Shelf Expiration Date Model / Serial / Lot [employer] [id number] Magseed 18ga 7cm Marker Breast Biopsy - [id number] Implanted:Qty : 1 on 07/01/2021 at [facility] Left: Breast [employer] [id number] Insurance MEDICARE ADVANTAGE [facility] MEDICARE ADVANTAGE Advance Directives For more information, please contact: [phone] Documents on File Type Date Recorded Patient Buildings And Grounds Coordinator Expl anation ADVANCE DIRECTIVE 07/06/2021 2:00 PM Power of Planner Chief-Medical Care Teams Skin Care Technician Relationship Specialty Start Date End Date Ce Thompson MD [address] [place] [address] PCP - General 09/26/16
--- OUTSIDE RECORDS SUMMARY | 2024-09-26 10:48 | XMS_ITS | Clinical Summary ---
Author Organization [facility] Address [address] [place] [id number] Care Team Providers Care Dog Handler Or Trainer Name Role Phone Ce Thompson MD Primary Care Provider + [phone] Allergies Active Allergy Reactions Criticality Noted Date [...] (04/30/2021): Added automatically from request for surgery [id number] Spasmodic torticollis 02/11/2015 Surgical History Surgery Date Site/Laterality Comments APPENDECTOMY DILATION AND CURETTAGE OF UTERUS 05/21/1981 - 05/20/1982 BREAST BIOPSY 03/14/2021 Left TONSILLECTOMY FEMUR CLOSED REDUCTION 01/20/2020 - 02/18/2020 Right with nail Medical History Medical History Date Comments Arthritis Generalized headaches Collagen vascular disease PAD (peripheral artery disease) PAD with left leg claudication and left SFA occlusion HTN (hypertension) HLD (hyperlipidemia) Asthma GERD (gastroesophageal reflux disease) Family History Medical History Relation Name Comments Thyroid cancer Daughter Lung cancer Maternal Grandfather age unk nown Other cancer Mother Blood Cancer Anesthesia problems Neg Hx Relation Name Status Comments Daughter Maternal Grandfather Mother Social History Tobacco Use Types Packs/Day Years [...] on file Legal Sex Female 2:31 AM SHRIMPING BOAT CAPTAIN Gender Identity Not on file Sexual Orientation Not on file Obstetrics History Last Filed Vital Signs Vital Sign Reading Time Taken Comments Blood Pressure 106/48 07/01/2021 2:00 PM SHRIMPING BOAT CAPTAIN Pulse 78 07/01/2021 2:00 PM SHRIMPING BOAT CAPTAIN Temperature 36.3 C (97.3 F) 07/01/2021 1:10 PM SHRIMPING BOAT CAPTAIN Respiratory Rate 15 07/01/2021 2:00 PM SHRIMPING BOAT CAPTAIN Oxygen Saturation 97% 07/01/2021 2:00 PM SHRIMPING BOAT CAPTAIN Inhaled Oxygen Concentration - - Weight 83 kg (182 lb 15.7 oz) 07/21/2021 3:53 PM SHRIMPING BOAT CAPTAIN Height 157.5 cm (5' 2 ) 07/21/2021 3:53 PM SHRIMPING BOAT CAPTAIN Body Mass Index 33.47 07/21/2021 3:53 PM SHRIMPING BOAT CAPTAIN Plan of Treatment Not on file Medical Devices Implanted Type Area Rehab Nursing Tech Device Identifier Shelf Expiration Date Model / Serial / Lot PlaceWise Med[employer] [id number] Magseed 18ga 7cm Marker Breast Biopsy - [id number] Implanted:Qty : 1 on 07/01/2021 at [facility] Left: Breast [employer] [id number] Insurance [facility] MEDICARE ADVANTAGE [facility] MEDICARE ADVANTAGE Advance Directives For more information, please contact: [phone] Documents on File Type Date Recorded Patient Sales Agent Trading Stamps Expl anation ADVANCE DIRECTIVE 07/06/2021 2:00 PM Power of Promotions Director-Medical Care Teams Dog Handler Or Trainer Relationship Specialty Start Date End Date Ce Thompson MD [address] [place] [address] PCP - General 09/26/16
[2024-09-26 11:02] LABS: Basophils Absolute Auto 0.02 K/mm3 (0.00-0.10); Basophils Percent Auto 0.3 % (0.0-1.0); Eosinophils Percent Auto 1.4 % (1.0-6.0); Hematocrit 42.4 % (35.0-42.0); Immature Granulocyte Absolute 0.05 K/mm3 (0.00-0.00); Immature Granulocyte Percent A 0.7 % (0.0-0.0); Lymphocytes Absolute Auto 2.21 K/mm3 (1.10-4.50); Mean Corpuscular Hemoglobin 31.1 pg (27.0-31.0); Mean Corpuscular Volume 94.2 fL (78.0-102.0); Mean Platelet Volume 9.1 fl (9.2-11.8); Monocytes Absolute Auto 0.55 K/mm3 (0.10-0.90); Monocytes Percent Auto 7.7 % (2.0-11.0); Neutrophils Percent Auto 58.9 % (50.0-70.0); Platelet Count Result 196 K/mm3 (150-420); Red Cell Distribution Width 12.7 % (11.6-14.4); White Blood Count 7.1 K/mm3 (4.8-10.8)
[2024-09-26 11:17] LABS: Hemoglobin A1C 6.1 % (<5.7)
[2024-09-26 11:22] LABS: Alanine Aminotransferase 23 U/L (6-35); Albumin Level 4.1 g/dL (3.5-5.1); Alkaline Phosphatase 111 U/L (38-126); Anion Gap 6 mmol/L (4-12); Aspartate Amino Transferase 24 U/L (14-36); Bilirubin,Total 0.7 mg/dL (0.2-1.3); Blood Urea Nitrogen 25 mg/dL (7-17); Calcium 8.8 mg/dL (8.4-10.2); Carbon Dioxide 29 mmol/L (22-30); Chloride 105 mmol/L (98-107); Cholesterol 118 mg/dL (0-200); Estimated Glomerular Filt Rate 45; Glucose 128 mg/dL (65-110); HDL Direct 32 mg/dL; LDL Cholesterol Calculated 60 mg/dL (<130); Osmolality Calculated 296 mOsm/kg (285-295); Potassium 4.1 mmol/L (3.4-5.0); Sodium 140 mmol/L (137-145); Total Protein 6.1 g/dL (6.3-8.2); Triglycerides 130 mg/dL (<150)
[2024-09-26 11:51] LABS: Thyroid Stimulating Hormone 0.457 uIU/mL (0.465-4.680)
== END 2024-09-26 10:46 | disposition home or self-care (01) ==
LOC: CHSLAB 10:46
PROVIDERS: PCP Family Medicine; Visit Provider Nurse Practitioner Family
DX: R73.03 Prediabetes (principal); R60.0 Localized edema; I10 Essential (primary) hypertension; E78.5 Hyperlipidemia, unspecified
CPT/HCPCS: 36415; 80053; 80061; 83036; 84443; 85025

== ENCOUNTER 2024-10-10 09:53 | Outpatient (CLI) | payer MEDICARE, SELFPAY ==
--- NOTE | ~2024-10-10 | XR_ITS ---
Right Knee Technique: AP and lateral views were obtained. Clinical History: Pain Findings: No fracture or dislocation is seen. Femoral intramedullary mitra is partially imaged Osseous alignment is anatomic. Joint spaces are preserved without degenerative or erosive change. Chondrocalc inosis of the menisci noted. No joint effusion is seen. Impression: No acute abnormality. Chondrocalcinosis of the menisci. Femoral intramedullary mitra is partially imaged. Reviewed, dictated and finalized at location M. Impression: No acute abnormality. Chondrocalcinosis of the menisci. Femoral intramedullary mitra is partially imaged.
--- OUTSIDE RECORDS SUMMARY | 2024-10-10 09:57 | XMS_ITS | Referral Summary ---
Author Organization [facility] Address [address] [place] [id number] Care Team Providers Care Financial Reporting Accountant Name Role Phone Ce Thompson MD Primary Care Provider + [phone] Allergies Active Allergy Reactions Criticality Noted Date [...] (04/30/2021): Added automatically from request for surgery [id number] Spasmodic torticollis 02/11/2015 Social History Tobacco Use [...] on file Legal Sex Female 2:31 AM TERMITE INSPECTOR Gender Identity Not on file Sexual Orientation Not on file Last Filed Vital Signs Vital Sign Reading Time Taken Comments Blood Pressure 106/48 07/01/2021 2:00 PM TERMITE INSPECTOR Pulse 78 07/01/2021 2:00 PM TERMITE INSPECTOR Temperature 36.3 C (97.3 F) 07/01/2021 1:10 PM TERMITE INSPECTOR Respiratory Rate 15 07/01/2021 2:00 PM TERMITE INSPECTOR Oxygen Saturation 97% 07/01/2021 2:00 PM TERMITE INSPECTOR Inhaled Oxygen Concentration - - Weight 83 kg (182 lb 15.7 oz) 07/21/2021 3:53 PM TERMITE INSPECTOR Height 157.5 cm (5' 2 ) 07/21/2021 3:53 PM TERMITE INSPECTOR Body Mass Index 33.47 07/21/2021 3:53 PM TERMITE INSPECTOR Plan of Treatment Not on file Medical Devices Implanted Type Area Music Artist Device Identifier Shelf Expiration Date Model / Serial / Lot [employer] [id number] Magseed 18ga 7cm Marker Breast Biopsy - [id number] Implanted:Qty : 1 on 07/01/[address] [facility] Left: Breast [employer] [id number] Insurance MEDICARE ADVANTAGE [facility] MEDIC[facility] Address: [address] [address] [facility] MEDICARE ADVANTAGE Advance Directives For more information, please contact: [phone] Documents on File Type Date Recorded Patient Dog Breeder Expl anation ADVANCE DIRECTIVE 07/06/2021 2:00 PM Power of Cardiac Cath Technologist-Medical Care Teams Financial Reporting Accountant Relationship Specialty Start Date End Date Ce Thompson MD [address] [place] [address] PCP - General 09/26/16
--- OUTSIDE RECORDS SUMMARY | 2024-10-10 09:57 | XMS_ITS | Clinical Summary ---
Author Organization [facility] Address [address] [place] [id number] Care Team Providers Care Bill Cutter Name Role Phone Ce Thompson MD Primary Care Provider + [phone] Allergies Active Allergy Reactions Criticality Noted Date [...] (04/30/2021): Added automatically from request for surgery [id number] Spasmodic torticollis 02/11/2015 Surgical History Surgery Date [...] on file Legal Sex Female 2:31 AM STEAM FRAME OPERATOR Gender Identity Not on file Sexual Orientation Not on file Obstetrics History Last Filed Vital Signs Vital Sign Reading Time Taken Comments Blood Pressure 106/48 07/01/2021 2:00 PM STEAM FRAME OPERATOR Pulse 78 07/01/2021 2:00 PM STEAM FRAME OPERATOR Temperature 36.3 C (97.3 F) 07/01/2021 1:10 PM STEAM FRAME OPERATOR Respiratory Rate 15 07/01/2021 2:00 PM STEAM FRAME OPERATOR Oxygen Saturation 97% 07/01/2021 2:00 PM STEAM FRAME OPERATOR Inhaled Oxygen Concentration - - Weight 83 kg (182 lb 15.7 oz) 07/21/2021 3:53 PM STEAM FRAME OPERATOR Height 157.5 cm (5' 2 ) 07/21/2021 3:53 PM STEAM FRAME OPERATOR Body Mass Index 33.47 07/21/2021 3:53 PM STEAM FRAME OPERATOR Plan of Treatment Not on file Medical Devices Implanted Type Area Healthcare Receptionist Device Identifier Shelf Expiration Date Model / Serial / Lot Rylar [employer] [id number] Magseed 18ga 7cm Marker Breast Biopsy - [id number] Implanted:Qty : 1 on 07/01/2021 at [facility] Left: Breast [employer] [id number] Insurance [facility] MEDICARE ADVANTAGE [facility] MEDICARE ADVANTAGE Advance Directives For more information, please contact: [phone] Documents on File Type Date Recorded Patient Keno Writer/Runner Expl anation ADVANCE DIRECTIVE 07/06/2021 2:00 PM Power of Apartment Hotel Manager-Medical Care Teams Bill Cutter Relationship Specialty Start Date End Date Ce Thompson MD [address] [place] [address] PCP - General 09/26/16
== END 2024-10-10 09:54 | disposition home or self-care (01) ==
LOC: CHSIMG 09:54
PROVIDERS: PCP Nurse Practitioner Family; Visit Provider Nurse Practitioner Family
DX: M25.561 Pain in right knee (principal); M11.261 Other chondrocalcinosis, right knee; Z96.89 Presence of other specified functional implants
CPT/HCPCS: 73560

== ENCOUNTER 2024-11-07 07:23 | Outpatient (CLI) | payer MEDICARE, SELFPAY ==
--- NOTE | ~2024-11-07 | US_ITS ---
BILATERAL LOWER EXTREMITY VENOUS ULTRASOUND Ordering provider: Talat Partida APRN History: . R60.0 - Localized edema . Comparison: None. FINDINGS: RIGHT LOWER EXTREMITY VEINS: --COMMON FEMORAL: Patent and free of thrombus. Normal compressibility, phasic flow and augmentation. --PROXIMAL SUPERFICIAL FEMORAL: Patent and free of thrombus. Normal compressibility, phasic flow and augmentation. --DISTAL SUPERFICIAL FEMORAL: Patent and free of thrombus. Normal compressibility, phasic flow and au gmentation. --POPLITEAL: Patent and free of thrombus. Normal compressibility, phasic flow and augmentation. --POSTERIOR TIBIAL: Patent and free of thrombus. Normal compressibility, phasic flow and augmentation . LEFT LOWER EXTREMITY VEINS: --COMMON FEMORAL: Patent and free of thrombus. Normal compressibility, phasic flow and augmentation. --PROXIMAL SUPERFICIAL FEMORAL: Patent and free of thrombus. Normal compressibility, phasic flow and augmentation. --DISTAL SUPERFICIAL FEMORAL: Patent and free of thrombus. Normal compressibility, phasic flow and au gmentation. --POPLITEAL: Patent and free of thrombus. Normal compressibility, phasic flow and augmentation. --POSTERIOR TIBIAL: Patent and free of thrombus. Normal compressibility, phasic flow and augmentation . IMPRESSION: Negative bilateral lower extremity venous US. No deep vein thrombosis. Reviewed, dictated and finalized at location A.
--- OUTSIDE RECORDS SUMMARY | 2024-11-07 07:28 | XMS_ITS | Referral Summary ---
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 Social History Tobacco Use Types Packs/Day Years Used Date Smoking Tobacco: Every Day Cigarettes 0.5 59.5 Started: 1963 Smokeless Tobacco: Never Tobacco Cessation:Ready [...] on file Legal Sex Female 2:31 AM SUPERVISORY LIFEGUARD Gender Identity Not on file Sexual Orientation Not on file Last Filed Vital Signs Vital Sign Reading Time Taken Comments Blood Pressure 106/48 07/01/2021 2:00 PM SUPERVISORY LIFEGUARD Pulse 78 07/01/2021 2:00 PM SUPERVISORY LIFEGUARD Temperature 36.3 C (97.3 F) 07/01/2021 1:10 PM SUPERVISORY LIFEGUARD Respiratory Rate 15 07/01/2021 2:00 PM SUPERVISORY LIFEGUARD Oxygen Saturation 97% 07/01/2021 2:00 PM SUPERVISORY LIFEGUARD Inhaled Oxygen Concentration - - Weight 83 kg (182 lb 15.7 oz) 07/21/2021 3:53 PM SUPERVISORY LIFEGUARD Height 157.5 cm (5' 2) 07/21/2021 3:53 PM SUPERVISORY LIFEGUARD Body Mass Index 33.47 07/21/2021 3:53 PM SUPERVISORY LIFEGUARD Plan of Treatment Not on file Medical Devices Implanted Type Area Floor Covering Contractor Device Identifier Shelf Expiration Date Model / Serial / Lot [employer] [id number] Magseed 18ga 7cm Marker Breast Biopsy - [id number] Implanted:Qty : 1 on 07/01/2021 at [facility] Left: Breast [employer] [id number] Insurance MEDICARE ADVANTAGE [facility] MEDICARE ADVANTAGE Advance Directives For more information, please contact: [phone] Documents on File Type Date Recorded Patient Sanitary Plumber Expl anation ADVANCE DIRECTIVE 07/06/2021 2:00 PM Power of Restaurant Worker-Medical Care Teams Carton Forming Machine Operator Relationship Specialty Start Date End Date Ce Thompson MD [address] [place] [address] PCP - General 09/26/16
--- OUTSIDE RECORDS SUMMARY | 2024-11-07 07:28 | XMS_ITS | Data Portability ---
Author Organization [facility], [address] [facility]rology ([place]) Address [address] [place] [address] Care Team Providers Care Clamper Name Role Phone JARRELL GUEVARA Primary Care Provider Assessment Encounter Date Assessment Date Assessment LastModified by Organization Details LastModified Time 09/22/2024 09/22/2024 ASSESSMENT AND PLAN: Kori Ferguson is a 78-year-old female who presents today out of concern for benign essential tremor in addition to history of spasmodic torticollis. She has been on Ativan with reasonable control but extreme fatigue. At this point, we will attempt primidone with titration by 25 mg every week until a total dose of 50 mg b.i.d. If she has any adverse effects including gait instability or fatigue, she is to call the office and we will discontinue or wean off. Alternatively, in the future we could consider medications like topiramate, gabapentin or Lyrica. She is not an ideal candidate for medications like propranolol due to her history of asthma. I will see her back in 4 to 5 months via telehealth. I personally spent a total of 20 minutes on the patient on this date of service including both fykc-uy-ahat and zoo-wzmx-gq-fa ce time excluding any separately reportable services. primo cardenas Not available 09/23/2024 06:14:56 Plan of Treatment Reminders Order Date Submit Date Provider Last Modified By Organization Details Last Modified Time Details Appointments TeleHealt h 15.TELE 2024 02:45P M Dr. Miladis Reich Not available Not available Not available Lab None recorded. Referral None recorded. Procedures None recorded. Surgeries None recorded. Imaging None recorded. Medication Orders primidone 50 mg tablet 2024 025 [facility] #[id number], [address] [place], [address], 09/22/2024 16:07:19 Patient TargetsNo targets recorded. Patient InstructionsNo instructions recorded. Reason for Referral None Reported. Problems Name Problem SNOMED Code Status Onset Date Resolution Date Notes Provider Name and Address Organization Details Recorded Time Spasmodic torticollis 59864648 Active 2024 Miladis Reich MD [address] [place] [address], [phone], [facility] 5 16:04:02 Essential tremor 962278362 Active 2024 Miladis Reich MD [address] [place] [address], [phone], [facility] 5 16:04:11 Problem Notes None recorded. Medical Equipment None Reported. Allergies Allergen ID Allergen Name Allergen Category Reaction Reaction Severity Criticality Documentation Date Start Date Code Code System Note Provider Name and Address Organization Details Recorded Time 147452 Levaquin medicatio n other Not available Not available 06/18/20232019 68887 2 RxNorm React ion: Unkno wn to Patie nt; Not Available [facility] 4 21:36:51 140676 Product containin g penicilli n (product) medicatio n other Not available Not available 06/18/20232019 91699 8001 SNOMED React ion: Unkno wn to Patie nt; Not Available [facility] 4 21:36:51 Medications Name Sig Start Date Stop Date Status Note LastModified by Organization Details LastModified Time furosemide 40 mg tablet TAKE 1 TABLET BY MOUTH TWICE DAILY active Not Available Not Available No t Available atorvastati n 40 mg tablet TAKE 1 TABLET BY MOUTH EVERY DAY active Not Available Not Available No t Available primidone 50 mg tablet PLEASE SEE ATTACHED FOR DETAILED DIRECTION S active Not Available Not Available No t Available azithromyci n 250 mg tablet TAKE 2 TABLETS BY MOUTH TODAY, THEN TAKE 1 TABLET DAILY FOR 4 DAYS DIRECTED 09/22 completed Not Available Not Available Not Available spironolact one 100 mg tablet TAKE 1 TABLET BY MOUTH EVERY DAY active Not Available Not Available No t Available pentoxifyll ine ER 400 mg tablet,exte nded release TAKE 1 TABLET BY MOUTH EVERY DAY FOR 2 MONTHS WITH MEAL/FOOD active Not Available Not Available No t Available citalopram 20 mg tablet TAKE 2 TABLETS BY MOUTH EVERY DAY active Not Available Not Available No t Available doxycycline monohydrate 100 mg capsule TAKE 1 CAPSULE BY MOUTH EVERY 12 HOURS FOR 10 DAYS active Not Available Not Available No t Available nitrofurant oin macrocrysta l 100 mg capsule TAKE 1 CAPSULE BY MOUTH DAILY. MUST ADMINISTE R WITH A MEAL/FOOD active Not Available Not Available No t Available prednisone 50 mg tablet TAKE 1 TABLET BY MOUTH EVERY DAY active Not Available Not Available No t Available montelukast 10 mg tablet 10 MG ORALLY DAILY active Not Available Not Available No t Available albuterol sulfate HFA 90 mcg/actuati on aerosol inhaler INHALE 2 PUFFS 4 TIMES A DAY NEEDED FOR SHORTNESS OF BREATH OR FOR WHEEZE active Not Available Not Available No t Available ipratropium bromide 42 mcg (0.06 %) nasal spray 2 SPRAY INTRANASA LLY THREE TIMES A DAY ADMINISTE R INTO EACH NOSTRIL active Not Available Not Available No t Available cefdinir 300 mg capsule 300 MG ORALLY EVERY 12 HOURS FOR 7 DAYS 09/22 completed Not Available Not Available Not Available doxycycline hyclate 100 mg tablet TAKE 1 TABLET BY MOUTH TWICE A DAY 09/22 completed Not Available Not Available Not Available Jock Itch (terbinafin e) 1 % topical cream 1 APPLIC TOPICALLY DAILY FOR 1 WEEK active Not Available Not Available No t Available mirabegron ER 25 mg tablet,exte nded release 24 hr 25 MG ORALLY DAILY active Not Available Not Available No t Available Vitals Date Recorded Body weight Heart rate Oxygen saturation Oxygen saturation in Arterial blood by Pulse oximetry Systolic blood pressure Diastolic blood pressure Provider Name and Address Organization Details Last Updated DateTime 5 73951.5 7 g 83 /min 96 % 96 % 125 mm[Hg] 77 mm[Hg] Bee Archibald [facility] 5 15:49:22 Social History None recorded. Functional Status None recorded. Mental Status None recorded. Family History Nothing Reported. Medical History No medical history recorded. Gynecological HistoryNo gynecological history recorded. Obstetrics History GPAL:G 0 P 0 0 0 0 Past Encounters Encounter ID Performer Location Encounter Start Date Encounter Closed Date Diagnosis/Indication Diagnosis SNOMED-CT Code Diagnosis ICD10 Code Diagnosis Note [id number] Miladis Reich MD [facility] ([place]) [address] [place] [address] 09/22/2024 15:34:10 09/25/2024 06:30:51 Spasmodic torticollis 14371985 G24.3 Essential tremor 2169390 09 G25.0 Health Concerns Section Related Observation LastModified by Organization Detai ls LastModified Time None Recorded Concern Status LastModified by Organization Details LastModified Time None Recorded Advance Directives Directive None Recorded Payers Insurance Date Sequence Insurance Name Policy Number Policy Craft Covered Member ID Craft Member ID Guarantor Name 09/25/2024 1 [employer] (MEDICARE REPLACEMENT/ ADVANTAGE - PPO) [id number] Kori Ferguson [id number] Kori Ferguson Notes Date Note Type Note Provider Name and Address Organization Details Recorded Time 09/22/2024 text/html Kori Ferguson i s a 78-year-old female who presents today out of concern for tremor in addition to history of spasmodic torticollis. She states in 1997 she had onset of turning to the right side with tightening that was diagnosed as spasmodic torticollis. She was initially seen at [facility] then transitioned to [facility]. She was able to use Botox with success in treatment. Ultimately, due to the severity of torticollis she had to discontinue work and was allowed to retire since she worked there for 35 years. Every 4 months she would receive approximately 16 shots until January 2022. At that point it sounds like she was having recurrent urinary tract infections and had a fall breaking her femur. She has subsequently developed gait instability in relation to this and also has had history of lymphedema within the left lower extremity that contributes to gait instability that may be related to some vein stripping that occurred on that side. She has been off Botox since 2019 due to convenience and has not noticed any significant refractory nature of the tremor. Although, more recently she has noticed extension to the hands bilaterally which she feels is worse on the left than the right. This is more prominent when attempting to do activities like drinking and eating. This is not present at rest. She has a history of a paternal grandmother who was impacted by tremor as she aged. She does not note any additional family members. With too much caffeine, she notices worsening of tremor but has not noticed any worsening with stress. Historically, she was on Ativan with good suppression of tremor, but this caused her to be sleepy. She is currently not consuming any alcohol products. Although, due to the historical response to the benzodiazepine I suspect a component of essential tremor. Beyond the gait instability in relation to lymphedema and the femur fracture she does not report any ongoing gait issues. Miladis Reich MD [address] , [place], [address], [facility] 09/24/2024 10:12:11 OBGyn Episode No OBEpisode recorded.
--- OUTSIDE RECORDS SUMMARY | 2024-11-07 07:28 | XMS_ITS | Clinical Summary ---
Author Organization [facility] Address [address] [place] [id number] Care Team Providers Care Aerosol Supervisor Name Role Phone Ce Thompson MD Primary Care Provider + [phone] Allergies Active Allergy Reactions Criticality Noted Date [...] (04/30/2021): Added automatically from request for surgery [id number] Spasmodic torticollis 02/11/2015 Surgical History Surgery Date [...] on file Legal Sex Female 2:31 AM GREENHOUSE TECHNICIAN Gender Identity Not on file Sexual Orientation Not on file Obstetrics History Last Filed Vital Signs Vital Sign Reading Time Taken Comments Blood Pressure 106/48 07/01/2021 2:00 PM GREENHOUSE TECHNICIAN Pulse 78 07/01/2021 2:00 PM GREENHOUSE TECHNICIAN Temperature 36.3 C (97.3 F) 07/01/2021 1:10 PM GREENHOUSE TECHNICIAN Respiratory Rate 15 07/01/2021 2:00 PM GREENHOUSE TECHNICIAN Oxygen Saturation 97% 07/01/2021 2:00 PM GREENHOUSE TECHNICIAN Inhaled Oxygen Concentration - - Weight 83 kg (182 lb 15.7 oz) 07/21/2021 3:53 PM GREENHOUSE TECHNICIAN Height 157.5 cm (5' 2) 07/21/2021 3:53 PM GREENHOUSE TECHNICIAN Body Mass Index 33.47 07/21/2021 3:53 PM GREENHOUSE TECHNICIAN Plan of Treatment Not on file Medical Devices Implanted Type Area Offset Machine Operator Device Identifier Shelf Expiration Date Model / Serial / Lot [employer] [id number] Magseed 18ga 7cm Marker Breast Biopsy - [id number] Implanted:Qty : 1 on 07/01/[address] [facility] Left: Breast [employer] [id number] Insurance [facility] MEDICARE ADVANTAGE [facility] MEDICARE ADVANTAGE Advance Directives For more information, please contact: [phone] Documents on File Type Date Recorded Patient Warehouse Distribution Manager Expl anation ADVANCE DIRECTIVE 07/06/2021 2:00 PM Power of Linux Network Engineer-Medical Care Teams Aerosol Supervisor Relationship Specialty Start Date End Date Ce Thompson MD [address] [place] [address] PCP - General 09/26/16
--- OUTSIDE RECORDS SUMMARY | 2024-11-07 07:28 | XMS_ITS | Encounter Summary ---
Author Organization [facility] Address [address] [place] [address] Care Team Providers Care Package Delivery Driver Name Role Phone Michele Jaramillo MD Unavailable Gal Mendez DO Primary Care Provider [phone] Reason for Visit * Reason Onset Date Comments Information 11/06/2024 Encounter Details Date Type Department Care Team (Late st Contact Info) Description 11/06/2024 Telephone [facility] [address] [place] [address] Talat Partida, OXYGEN PLANT OPERATOR [address] [place] [address] Information Social History Tobacco Use Types Packs/Day Years Used Date Smoking Tobacco: Every Day Cigarettes 1.5 50 Smokeless Tobacco: Never Alcohol Use Standard Drinks/Week Comments Not Currently [...] money to buy more. Never true 11/12/19 23 Within the past 12 months, t he [...] place to sleep or slept in a senior care (including now)? No 11/11/2022 Comments No Sex and Gender Information Value Date Recorded Sex Assigned at Not on file Legal Sex Female 9:45 AM CDT Gender Identity Not on file Sexual Orientation Not on file Occupation Industry Job Start Date Job End Date retired Not on file Not on file Not on file documented as of this encounter Functional Status * Are you deaf or do you have serious difficulty hearing Answer Date of Assessment Author Status No 11/11/2022 11:50 PM PRASANNAT Talia Rodriguez RN Active * Are you blind or do you have serious difficulty seeing, even when wearing glasses? Answer Date of Assessment Author Status Yes 11/11/2022 11:50 PM PRASANNAT Talia Rodriguez RN Active * Do you have serious difficulty walking or climbing stairs? Answer Date of Assessment Author Status Yes 11/11/2022 11:50 PM CDT Talia Rodriguez RN Active * Do you have difficulty dressing or bathing? Answer Date of Assessment Author Status Yes 11/11/2022 11:50 PM CDT Talia Rodriguez RN Active * Because of a physical, mental, or emotional condition, do you have difficulty doing errands alone such as visiting a doctor's office or shopping? Answer Date of Assessment Author Status Yes 11/11/2022 11:50 PM CDT Talia Rodriguez RN Active documented as of this encounter Mental Status * Because of a physical, mental, or emotional condition, do you have serious difficulty concentrating, remembering, or making decisions? Answer Entry Date Author Status Yes 11/11/2022 11:50 PM CDT Talia Rodriguez RN Active documented in this encounter Progress Notes * Chata Julio Joe - 11/06/2024 9:54 AM CDT Left a message with Talat Partida's Silver Designer letting them know that the Lymphedema team agreed that the Lymphedema therapy that is ordered for the patient would probably would not benefit the patient. Patient has been seen before for Lymphedema therapy and was given education, training and the i nformation to apply garments. Patient's insurance would not pay for the compression garments and she was having to use off the shelf items. She was given recommendations for off the shelf garments for management to prevent further hospital readmission, BLE Cellulitis or Ulcers. If the patient's [employer] would pay for the garments that would greatly benefit the patient. documented in this encounter Plan of Treatment Not on file documented as of this encounter Goals Goal Patient Goal Type Associated Problems Recent Progress Patient-Stated? Author Family - family caregiver with be involved in care transitions and discharge planning Lifestyle No Tala Rivers RN documented as of this encounter Visit Diagnoses Not on filedocumented in this encounter Care Teams Package Delivery Driver Relationship Specialty Start Date End Date Gal Mendez [place] [facility] [place] [address] PCP - General FAMILY PRACTICE 06/27/23 Michele Jaramillo MD Vascular/Item Processing Clerk INTERNAL MEDICINE 01/08/18 documented as of this encounter
== END 2024-11-07 07:24 | disposition home or self-care (01) ==
LOC: CHSIMG 07:25
PROVIDERS: PCP Nurse Practitioner Family; Visit Provider Nurse Practitioner Family
DX: R60.0 Localized edema (principal)
CPT/HCPCS: 93970

== ENCOUNTER 2025-03-25 10:25 | Outpatient (CLI) | payer MEDICARE, SELFPAY ==
--- OUTSIDE RECORDS SUMMARY | 2024-10-16 04:00 | XMS_ITS ---
Author Organization [facility] Address [address] [place], [place] [id number] Care Team Providers Care Consulting Services Manager Name Role Phone JOSY GEORGE Unavailable [phone] Gal Mendez Unavailable Unavailable Allergies Allergen (clinical drug ingredient) Drug/Non Drug Allergy documented on EMR Reaction Allergy Type Onset Date Status Penicillin Unknown Drug Allergy Active REASON FOR VISIT *General care Medications Medication SIG (Take, Route, Frequency, Duration) Notes Start Date End Date Status Ipratropium [place] 0.06 % Solution Nasal; Duration: 90 Days Act lalitha Nitrofurantoin Macrocrystal 100 MG Capsule Oral; Duration: 90 Days Ac tive Azithromycin 250 MG Tablet TAKE 2 TABLET S BY MOUTH TODAY, THEN TAKE 1 TABLET DAILY FOR 4 DAYS DIRECTED Oral; Duration: 5 Days Active [facility] Jock Itch 1 % Cream 1 APPLIC TOPICAL LY DAILY FOR 1 WEEK External; Duration: 7 Days Active Doxycycline Hyclate 100 MG Tablet Oral; Duration: 5 Days Activ e Citalopram Hydrobromide 20 MG Tablet TAKE 2 TABLETS BY MOUTH EVERY DAY Oral; Duration: 90 Days Active Nitrofurantoin Macrocrystal 100 MG Capsule TAKE 1 CAPSULE BY MOUTH DAILY. MUST ADMINISTER WITH A MEAL/FOOD Oral; Duration: 90 Days Active Doxycycline Monohydrate 100 MG Capsule Oral; Duration: 10 Days Acti ve Mirabegron ER 25 MG Tablet Extended Release 24 Hour 25 MG ORALLY DAILY Oral; Duration: 90 Days Active Montelukast Sodium 10 MG Tablet 10 MG ORALLY DAILY Oral; Duration: 90 Days Active Spironolactone 100 MG Tablet Oral; Duration: 90 Days Active predniSONE 50 MG Tablet Oral; Duration: 5 Days Active Primidone 50 MG Tablet Oral; Duration: 30 Days Active Pentoxifylline ER 400 MG Tablet Extended Release Oral; Duration: 90 Days Active Furosemide 40 MG Tablet Oral; Duration: 90 Days Active Atorvastatin Calcium 40 MG Tablet TAKE 1 TABLET BY MOUTH EVERY DAY Oral; Duration: 90 Days Active Citalopram Hydrobromide 20 MG Tablet Oral; Duration: 90 Days Acti ve Social History Social History Additional Details Category Social Info Options Details Drugs/Alcohol: Do you drink alcohol? No Vital Signs Height 62 in 10/16/2024 Weight 184 lbs 10/16/2024 BMI 33.65 kg/m2 10/16/2024 Height-cm 157.48 cm 10/16/2024 Weight-kg 83.46 kg 10/16/2024 Encounters Encounter Location Date Provider Diagnosis [address] [id number] 10/16/2024 GEORGE FERRIS Ingrowing nail L60.0 ; Tinea unguium B35.1 ; Acquired keratosis [keratoderma] palmaris et plantaris L85.1 ; Atherosclerosis of deering arteries of extremities with intermittent claudication, bilateral legs I70.213 ; Pain in right foot M79.671 and Pain in left foot M79.672 Assessments Encounter Date Diagnosis (ICD Code) Assessment Notes Treatment Notes Treatment Clinical Notes Section Notes 10/16/2024 Ingrowing nail (ICD-10 - L60.0) Aseptic debridement of elongated thickened nails x 10 using sterile nippers, nails were debrided in length and thickness by 30% utilizing a nail nipper without incident. The patient was educated regarding all treatment options that include topical and oral antifungal treatments and nail procedures. 10/16/2024 Tinea unguium (ICD-10 - B35.1) Aseptic debridement of elongated thickened nails x 10 using sterile nippers, nails were debrided in length and thickness by 30% utilizing a nail nipper without incident. 10/16/2024 Acquired keratosis [keratoderma] palmaris et plantaris (ICD-10 - L85.1) 10/16/2024 Atherosclerosis of deering arteries of extremities with intermittent claudication, bilateral legs (ICD-10 - I70.213) Check and protect LE bilateral daily. Call if any changes or concerns. Advised patient on edema treatment recommendations. Recommendation for periodic elevation of feet and lower legs through the day. Recommend support compression hose. Recommend dietary restrictions salt intake. Followup with family physician for potential diuretic management if needed. 10/16/2024 Pain in right foot (ICD-10 - M79.671) 10/16/2024 Pain in left foot (ICD-10 - M79.672) Plan Of Treatment Treatment Notes Assessment Notes Ingrowing nail Aseptic debridement of elongated thickened nails x 10 using sterile nippers, nails were debrided in length and thickness by 30% utilizing a nail nipper without incident. The patient was educated regarding all treatment options that include topical and oral antifungal treatments and nail procedures. Tinea unguium Aseptic debridement of elongated thickened nails x 10 using sterile nippers, nails were debrided in length and thickness by 30% utilizing a nail nipper without incident. Atherosclerosis of deering ar teries of extremities with intermittent claudication, bilateral legs Check and protect LE bilateral daily. Call if any changes or concerns. Advised patient on edema treatment recommendations. Recommendation for periodic elevation of feet and lower legs through the day. Recommend support compression hose. Recommend dietary restrictions salt intake. Followup with family physician for potential diuretic management if needed. Next Appt Details Follow Up: 3 Months, Reason: GC Provider Name:GEORGE Koffi ALBERT, 04/30/2025 01:20:00 PM, [address] [place] [address], [phone], History and Physical Notes * HPI (History of Present Illness) Category Sub-Category Detail Notes Category Not es HPI New Complaint Patient presents for a new patient consultation. Patient presents for a nail trimming today. Patient denies being diabetic, denies taking any prescription bloodthinners, but does take a daily aspirin. MA LB Examination Category Sub-Category Detail Notes Category Not es Constitutional Constitutional The patient is a wake, alert, well developed, well groomed and well nourished. Dermatologic Skin findings: bilateral, Skin is thin, atrophic and lacking pedal hair. Nail pathology: Nails 1-5 bilateral are elongated, thick, discolored, and dystrophic with subungual debris. They are painful to palpation with onychomycosis and subungual debris Hyperkeratotic Skin Lesion There is evid ence of hyperkeratotic skin lesions present on the distal aspect of the 1st digit bilateral Musculoskeletal Muscle Strength Muscle strength is 4/5 in regards to dorsiflexion, plantarflexion, inversion, and eversion in bilateral lower extremities. She uses walker or wheelchair. She has a fracture years ago and has not walked independently since. Her daughter is her clerk checker. Hammertoes Dorsally contracted digits 2-5 bilateral. The deformity is rigid and nonreducible Foot Structure The foot structure i s noted to be, planus, bilaterally Neurologic Gross sensation Gross sensation is intact to light touch. Vascular Dorsalis pedis pulse: bilateral, 2/4 Posterior tibial pulse: bilaterally, 2/4 Edema: bilateral +2 pitting edema, calves loose and nontender. Tenderness behind right knee at popliteal fossa without palpable mass or heat or fluctuance noted. Progress Notes * Kori FERGUSONDOB: 8 (79 yo F)Acc No.[id number]:10/16/2024 Progress Notes Patient: Kori Nam Provider: Dustin FERRIS :1945 A ge:78 Y S ex:Female Date:10/16/2024 Address:[address] [place], [place] [id number] Subjective: * Chief Complaints: * * General care * HPI: H PI: New Complaint P atient presents for a new patient consultation. Patient presents for a nail trimming today. Patient denies being diabetic, denies taking any prescription bloodthinners, but does take a daily aspirin. MA LB. * ROS: G eneral / Constitutional: Patient denies c hills, fever, , weight loss. P atient complains of p ain in toenails and upper thighs R > L. M usculoskeletal: Patient denies b roken ankle, orthotic use. ? P eripheral Vascular: Patient complains of c hronic edema, once diagnosed with lymphedema. She has compression socks but cannot apply them herself. Her daughter says her PCP is helping them find a home helper and pursuing the diagnosis and treatment of the leg pain. ? S kin: Patient denies f ungal nails, discoloration, ingrown nails, nail changes. N eurologic: Patient denies N umbness, seizures. P atient complains of b alance difficulty. * Medical History: Acid reflux Pneumonia Asthma/Bronchitis Leg/Feet cramps Gout Sleep apnea Varicose veins Depression Hypertension Medical History Verified * Surgical History: appendectomy Surgical History verified. * Hospitalization/Major Diagno stic Procedure: No Hospitalization Documented. Hospitalization Verified. * Family History: N o Family History documented.. F amily History Verified.. * Social History: D rugs/Alcohol: D o you drink alcohol?: No. * Medications: T akingCitalopram Hydrobromide 20 MG Tablet Oral Atorvastatin Calcium 40 MG Tablet TAKE 1 TABLET BY MOUTH EVERY DAY Oral predniSONE 50 MG Tablet Oral Spironolactone 100 MG Tablet Oral Primidone 50 MG Tablet Oral Furosemide 40 MG Tablet Oral Pentoxifylline ER 400 MG Tablet Extended Release Oral Doxycycline Monohydrate 100 MG Capsule Oral Nitrofurantoin Macrocrystal 100 MG Capsule TAKE 1 CAPSULE BY MOUTH DAILY. MUST ADMINISTER WITH A MEAL/FOOD Oral Montelukast Sodium 10 MG Tablet 10 MG ORALLY DAILY Oral Mirabegron ER 25 MG Tablet Extended Release 24 Hour 25 MG ORALLY DAILY Oral Citalopram Hydrobromide 20 MG Tablet TAKE 2 TABLETS BY MOUTH EVERY DAY Oral Ipratropium [place] 0.06 % Solution Nasal Azithromycin 250 MG Tablet TAKE 2 TABLETS BY MOUTH TODAY, THEN TAKE 1 TABLET DAILY FOR 4 DAYS DIRECTED Oral Nitrofurantoin Macrocrystal 100 MG Capsule Oral CVS Jock Itch 1 % Cream 1 APPLIC TOPICALLY DAILY FOR 1 WEEK External Doxycycline Hyclate 100 MG Tablet Oral Medication List reviewed and reconciled with the patientTaking Citalopram Hydrobromide 20 MG Tablet Oral Taking Atorvastatin Calcium 40 MG Tablet TAKE 1 TABLET BY MOUTH EVERY DAY Oral Taking predniSONE 50 MG Tablet Oral Taking Spironolactone 100 MG Tablet Oral Taking Primidone 50 MG Tablet Oral Taking Furosemide 40 MG Tablet Oral Taking Pentoxifylline ER 400 MG Tablet Extended Release Oral Taking Doxycycline Monohydrate 100 MG Capsule Oral Taking Nitrofurantoin Macrocrystal 100 MG Capsule TAKE 1 CAPSULE BY MOUTH DAILY. MUST ADMINISTER WITH A MEAL/FOOD Oral Taking Montelukast Sodium 10 MG Tablet 10 MG ORALLY DAILY Oral Taking Mirabegron ER 25 MG Tablet Extended Release 24 Hour 25 MG ORALLY DAILY Oral Taking Citalopram Hydrobromide 20 MG Tablet TAKE 2 TABLETS BY MOUTH EVERY DAY Oral Taking Ipratropium [place] 0.06 % Solution Nasal Taking Azithromycin 250 MG Tablet TAKE 2 TABLETS BY MOUTH TODAY, THEN TAKE 1 TABLET DAILY FOR 4 DAYS DIRECTED Oral Taking Nitrofurantoin Macrocrystal 100 MG Capsule Oral Taking CVS Jock Itch 1 % Cream 1 APPLIC TOPICALLY DAILY FOR 1 WEEK External Taking Doxycycline Hyclate 100 MG Tablet Oral Medication List reviewed and reconciled with the patient * Allergies: P enicillinyesAllergies Verified. Objective: * Vitals: S hoe Size: 6.5/7, Wt: 184 lbs, Wt-k.46 kg, Ht: 62 in, Ht-cm: 157.48 cm, BMI: 33.65 Index, Body Surface Area: 1.91. * Examination: C onstitutional: Constitutional T he patient is awake, alert, well developed, well groomed and well nourished.. D ermatologic: Skin findings: b ilateral, Skin is thin, atrophic and lacking pedal hair.. Nail pathology: N ails 1-5 bilateral are elongated, thick, discolored, and dystrophic with subungual debris. They are painful to palpation w ith onychomycosis a nd s ubungual debris. Hyperkeratotic Skin Lesion T here is evidence of hyperkeratotic skin lesions present on the d istal aspect of the 1st digit bilateral. ? M usculoskeletal: Muscle Strength M uscle strength is 4/5 in regards to dorsiflexion, plantarflexion, inversion, and eversion in bilateral lower extremities. She uses walker or wheelchair. She has a fracture years ago and has not walked independently since. Her daughter is her clerk checker.. Foot Structure T he foot structure is noted to be, planus, bilaterally. Hammertoes D orsally contracted digits 2-5 bilateral. The deformity is rigid and nonreducible. N eurologic: Gross sensation G ross sensation is intact to light touch..? V ascular: Dorsalis pedis pulse: b ilateral, 2/4. Posterior tibial pulse: b ilaterally, 2/4. Edema: b ilateral + 2 p itting edema, calves loose and nontender. Tenderness behind right knee at popliteal fossa without palpable mass or heat or fluctuance noted.. Assessment: * Assessment: 1. I ngrowing nail - L60.0 (Primary) 2 . T inea unguium - B35.1 ?3. A cquired keratosis [keratoderma] palmaris et plantaris - L85.1 4 .?Atherosclerosis of deering arteries of extremities with intermittent claudication, bilateral legs - I70.213 5 . P ain in right foot - M79.671 6 . P ain in left foot - M79.672 Plan: * Treatment: 2. T inea unguium Notes: Aseptic debridement of elongated thickened nails x 10 using sterile nippers, nails were debrided in length and thickness by 30% utilizing a nail nipper without incident. 3. A therosclerosis of deering arteries of extremities with intermittent claudication, bilateral legs Notes: Check and protect LE bilateral daily. Call if any changes or concerns. Advised patient on edema treatment recommendations. Recommendation for periodic elevation of feet and lower legs through the day. Recommend support compression hose. Recommend dietary restrictions salt intake. Followup with family physician for potential diuretic management if needed. * Immunizations: Immunization record has been reviewed and updated. * Preventive Medicine: Counseling: S moking: Sina brunner counselled on the dangers of tobacco use and urged to quit. 0 10/16/2024. * Follow Up: 3 Months (Reason: GC) Billing Information: * Visit Code: 25301 Office Visit, New Pt., Level 3. * Electronic signature of ASIA FERRIS DPM on 03/26/2025 at 10:10 AM DIAMOND GRADER Sign off status: Pending * Provider: Dustin FERRIS Date: 0 10/16/2024 Generated for Shala aleman/Chad/Ana on: 1 05/26/2024 10:10 AM DIAMOND GRADER
--- OUTSIDE RECORDS SUMMARY | 2024-12-18 09:10 | XMS_ITS ---
Author Organization [facility] Address [address] [place], [place] [id number] Care Team Providers Care Fudge Candy Maker Name Role Phone JOSY GEORGE Unavailable [phone] Gal Mendez Unavailable Unavailable Allergies Allergen (clinical drug ingredient) Drug/Non Drug Allergy documented on EMR Reaction Allergy Type Onset Date Status Penicillin Unknown Drug Allergy Active REASON FOR VISIT *General care Medications Medication SIG (Take, Route, Frequency, Duration) Notes Start Date End Date Status Furosemide 40 MG Tablet Oral; Duration: 90 Days Active Doxycycline Monohydrate 100 MG Capsule Oral; Duration: 10 Days Acti ve Pentoxifylline ER 400 MG Tablet Extended Release Oral; Duration: 90 Days Active Montelukast Sodium 10 MG Tablet 10 MG ORALLY DAILY Oral; Duration: 90 Days Active Nitrofurantoin Macrocrystal 100 MG Capsule TAKE 1 CAPSULE BY MOUTH DAILY. MUST ADMINISTER WITH A MEAL/FOOD Oral; Duration: 90 Days Active Atorvastatin Calcium 40 MG Tablet TAKE 1 TABLET BY MOUTH EVERY DAY Oral; Duration: 90 Days Active Citalopram Hydrobromide 20 MG Tablet Oral; Duration: 90 Days Acti ve Spironolactone 100 MG Tablet Oral; Duration: 90 Days Active predniSONE 50 MG Tablet Oral; Duration: 5 Days Active Primidone 50 MG Tablet Oral; Duration: 30 Days Active Ipratropium Monarch 0.06 % Solution Nasal; Duration: 90 Days Act lalitha Nitrofurantoin Macrocrystal 100 MG Capsule Oral; Duration: 90 Days Ac tive Azithromycin 250 MG Tablet TAKE 2 TABLET S BY MOUTH TODAY, THEN TAKE 1 TABLET DAILY FOR 4 DAYS DIRECTED Oral; Duration: 5 Days Active Doxycycline Hyclate 100 MG Tablet Oral; Duration: 5 Days Activ e [facility] Jock Itch 1 % Cream 1 APPLIC TOPICAL LY DAILY FOR 1 WEEK External; Duration: 7 Days Active Citalopram Hydrobromide 20 MG Tablet TAKE 2 TABLETS BY MOUTH EVERY DAY Oral; Duration: 90 Days Active Mirabegron ER 25 MG Tablet Extended Release 24 Hour 25 MG ORALLY DAILY Oral; Duration: 90 Days Active Vital Signs Height 62 in 12/18/2024 Weight 184 lbs 12/18/2024 BMI 33.65 kg/m2 12/18/2024 Height-cm 157.48 cm 12/18/2024 Weight-kg 83.46 kg 12/18/2024 Encounters Encounter Location Date Provider Diagnosis [address] [id number] 12/18/2024 GEORGE FERRIS Ingrowing nail L60.0 ; Tinea unguium B35.1 ; Acquired keratosis [keratoderma] palmaris et plantaris L85.1 ; Atherosclerosis of eyak arteries of extremities with intermittent claudication, bilateral legs I70.213 ; Pain in right foot M79.671 and Pain in left foot M79.672 Assessments Encounter Date Diagnosis (ICD Code) Assessment Notes Treatment Notes Treatment Clinical Notes Section Notes 12/18/2024 Ingrowing nail (ICD-10 - L60.0) Aseptic debridement of elongated thickened nails x 10 using sterile nippers, nails were debrided in length and thickness by 30% utilizing a nail nipper without incident. The patient was educated regarding all treatment options that include topical and oral antifungal treatments and nail procedures. 12/18/2024 Tinea unguium (ICD-10 - B35.1) Aseptic debridement of elongated thickened nails x 10 using sterile nippers, nails were debrided in length and thickness by 30% utilizing a nail nipper without incident. 12/18/2024 Acquired keratosis [keratoderma] palmaris et plantaris (ICD-10 - L85.1) Hyperkeratosis x 3: The skin was prepped with isopropyl alcohol. Using a 15-blade scalpel, the hyperkeratotic skin lesions were sharply debrided down to healthy appearing skin. 12/18/2024 Atherosclerosis of eyak arteries of extremities with intermittent claudication, bilateral legs (ICD-10 - I70.213) Check and protect LE bilateral daily. Call if any changes or concerns. Advised patient on edema treatment recommendations. Recommendation for periodic elevation of feet and lower legs through the day. Recommend support compression hose. Recommend dietary restrictions salt intake. Followup with family physician for potential diuretic management if needed. 12/18/2024 Pain in right foot (ICD-10 - M79.671) 12/18/2024 Pain in left foot (ICD-10 - M79.672) [...] 30% utilizing a nail nipper without incident. Acquired keratosis [keratode rma] palmaris et plantaris Hyperkeratosis x 3: The skin was prepped with isopropyl alcohol. Using a 15-blade scalpel, the hyperkeratotic skin lesions were sharply debrided down to healthy appearing skin. Atherosclerosis of eyak ar teries of extremities with intermittent claudication, [...] Up: 3 Months, Reason: GC Provider Name:GEORGE ALBERT, 04/30/2025 01:20:00 PM, [address] [place] [address], [phone], History and Physical Notes * HPI (History of Present Illness) Category Sub-Category Detail Notes Category Not es HPI General care Patient presents to the office for at risk foot care. Patient states that their nails are thickened, elongated and painful. Patient states that it is aggravated by shoe gear. Onset is gradual. Patient denies being diabetic., Patient denies taking blood thinners., Date last seen by Dr. Mendez was 09/2024., Initials nd Examination Category Sub-Category Detail Notes Category Not [...] distal aspect of the 1st digit bilateral and right heel Musculoskeletal Muscle Strength Muscle strength is 4/5 in regards to dorsiflexion, plantarflexion, inversion, and eversion in bilateral lower extremities. She uses walker or wheelchair. She has a fracture years ago and has not walked independently since. 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 Hammertoes Dorsally contracted digits 2-5 bilateral. The deformity is rigid and nonreducible Foot Structure The foot structure i s noted to be, planus, bilaterally Neurologic Gross sensation Gross sensation is intact to light touch. Vascular Dorsalis pedis pulse: bilateral, 2/4 Posterior tibial pulse: bilaterally, 2/4 Edema: bilateral +2 pitting edema, calves loose and nontender Progress Notes * Kori FERGUSONDOB: 8 (79 yo F)Acc No.[id number]:12/18/2024 Patient: Deandre Kori gonzalez Provider: Dustin FERRIS :1945 A ge:79 Y S ex:Female Date:12/18/2024 Address:[address] [place], [place] [id number] Subjective: * Chief Complaints: * * General care * HPI: H PI: General care P myesha presents to the office for at risk foot care. Patient states that their nails are thickened, elongated and painful. Patient states that it is aggravated by shoe gear. Onset is gradual. Patient denies being diabetic., Patient denies taking blood thinners., Date last seen by Dr. Mendez was 09/2024., Initials nd. * ROS: G eneral / Constitutional: Patient [...] History verified. * Hospitalization/Major Diagno stic Procedure: Denies Past Hospitalization. Hospitalization Verified. * Family History: N o Family History documented.. F amily History Verified.. * Social History: Social History Verified. No Social History documented. * Medications: T akingCitalopram Hydrobromide 20 MG [...] TABLETS BY MOUTH EVERY DAY Oral Ipratropium Monarch 0.06 % Solution Nasal Azithromycin 250 MG [...] BY MOUTH EVERY DAY Oral Taking Ipratropium Monarch 0.06 % Solution Nasal Taking Azithromycin 250 [...] d istal aspect of the 1st digit bilateral and right heel. ? M usculoskeletal: Muscle Strength M uscle strength is 4/5 in regards to dorsiflexion, plantarflexion, inversion, and eversion in bilateral lower extremities. She uses walker or wheelchair. She has a fracture years ago and has not walked independently since. 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 Foot Structure T he foot structure is noted to be, planus, bilaterally. Hammertoes D orsally contracted digits 2-5 bilateral. The deformity is rigid and nonreducible. N eurologic: Gross sensation G ross sensation is intact to light touch..? V ascular: Dorsalis pedis pulse: b ilateral, 2/4. Posterior tibial pulse: b ilaterally, 2/4. Edema: b ilateral + 2 p itting edema, calves loose and nontender. Assessment: * Assessment: 1. I ngrowing nail - L60.0 (Primary) 2 . T inea unguium - B35.1 ?3. A cquired keratosis [keratoderma] palmaris et plantaris - L85.1 4 .?Atherosclerosis of eyak arteries of extremities with intermittent claudication, bilateral [...] a nail nipper without incident. 3. A cquired keratosis [keratoderma] palmaris et plantaris Notes: Hyperkeratosis x 3: The skin was prepped with isopropyl alcohol. Using a 15-blade scalpel, the hyperkeratotic skin lesions were sharply debrided down to healthy appearing skin. 4. A therosclerosis of eyak arteries of extremities with intermittent claudication, bilateral legs Notes: Check and protect LE bilateral daily. Call if any changes or concerns. Advised patient on edema treatment recommendations. Recommendation for periodic elevation of feet and lower legs through the day. Recommend support compression hose. Recommend dietary restrictions salt intake. Followup with family physician for potential diuretic management if needed. * Follow Up: 3 Months (Reason: GC) Billing Information: * Visit Code: 45228 Office Visit, Est Pt., Level 3. * Procedure Codes: * Electronic signature of ASIA FERRIS DPM on 03/26/2025 at 10:09 AM BUYER INTERN Sign off status: Pending * Provider: Dustin FERRIS Date: 0 12/18/2024 Generated for Shala aleman/Chad/Ana on: 05/26/2024 10:09 AM BUYER INTERN
--- OUTSIDE RECORDS SUMMARY | 2025-02-19 07:30 | XMS_ITS ---
Author Organization [facility] Address [address] [place], [place] [id number] Care Team Providers Care Rn Immunology Name Role Phone JOSY GEORGE Unavailable [phone] Gal Mendez Unavailable Unavailable Allergies Allergen (clinical drug ingredient) Drug/Non Drug Allergy documented on EMR Reaction Allergy Type Onset Date Status Penicillin Unknown Drug Allergy Active REASON FOR VISIT *General care Medications Medication SIG (Take, Route, Frequency, Duration) Notes Start Date End Date Status Nitrofurantoin Macrocrystal 100 MG Capsule TAKE 1 CAPSULE BY MOUTH DAILY. MUST ADMINISTER WITH A MEAL/FOOD Oral; Duration: 90 Days Active Montelukast Sodium 10 MG Tablet 10 MG ORALLY DAILY Oral; Duration: 90 Days Active Mirabegron ER 25 MG Tablet Extended Release 24 Hour 25 MG ORALLY DAILY Oral; Duration: 90 Days Active Citalopram Hydrobromide 20 MG Tablet TAKE 2 TABLETS BY MOUTH EVERY DAY Oral; Duration: 90 Days Active Ipratropium Kemp 0.06 % Solution Nasal; Duration: 90 Days Act lalitha Spironolactone 100 MG Tablet Oral; Duration: 90 Days Active Primidone 50 MG Tablet Oral; Duration: 30 Days Active Furosemide 40 MG Tablet Oral; Duration: 90 Days Active Pentoxifylline ER 400 MG Tablet Extended Release Oral; Duration: 90 Days Active Doxycycline Monohydrate 100 MG Capsule Oral; Duration: 10 Days Acti ve Citalopram Hydrobromide 20 MG Tablet Oral; Duration: 90 Days Acti ve Atorvastatin Calcium 40 MG Tablet TAKE 1 TABLET BY MOUTH EVERY DAY Oral; Duration: 90 Days Active predniSONE 50 MG Tablet Oral; Duration: 5 Days Active [facility] Jock Itch 1 % Cream 1 APPLIC TOPICAL LY DAILY FOR 1 WEEK External; Duration: 7 Days Active Doxycycline Hyclate 100 MG Tablet Oral; Duration: 5 Days Activ e Azithromycin 250 MG Tablet TAKE 2 TABLET S BY MOUTH TODAY, THEN TAKE 1 TABLET DAILY FOR 4 DAYS DIRECTED Oral; Duration: 5 Days Active Nitrofurantoin Macrocrystal 100 MG Capsule Oral; Duration: 90 Days Ac tive Vital Signs Height 62 in 02/19/2025 Weight 184 lbs 02/19/2025 BMI 33.65 kg/m2 02/19/2025 Height-cm 157.48 cm 02/19/2025 Weight-kg 83.46 kg 02/19/2025 Encounters Encounter Location Date Provider Diagnosis [address] [id number] 02/19/2025 GEORGE FERRIS Ingrowing nail L60.0 ; Tinea unguium B35.1 ; Acquired keratosis [keratoderma] palmaris et plantaris L85.1 ; Atherosclerosis of barrow arteries of extremities with intermittent claudication, bilateral legs I70.213 ; Pain in right foot M79.671 and Pain in left foot M79.672 Assessments Encounter Date Diagnosis (ICD Code) Assessment Notes Treatment Notes Treatment Clinical Notes Section Notes 02/19/2025 Ingrowing nail (ICD-10 - L60.0) Aseptic debridement of elongated thickened nails x 10 using sterile nippers, nails were debrided in length and thickness by 30% utilizing a nail nipper without incident. The patient was educated regarding all treatment options that include topical and oral antifungal treatments and nail procedures. Slant Back Toenail: Following skin prep, the offending nail border was debrided without anesthesia. The patient was instructed on monitoring for infection or recurrence. Cold spray was used during trimming. She plans to have partial nail matrixectomy bilateral edges of left 1st nail next visit 02/19/2025 Tinea unguium (ICD-10 - B35.1) Aseptic debridement of elongated thickened nails x 10 using sterile nippers, nails were debrided in length and thickness by 30% utilizing a nail nipper without incident. 02/19/2025 Acquired keratosis [keratoderma] palmaris et plantaris (ICD-10 - L85.1) Hyperkeratosis x 3: The skin was prepped with isopropyl alcohol. Using a 15-blade scalpel, the hyperkeratotic skin lesions were sharply debrided down to healthy appearing skin. 02/19/2025 Atherosclerosis of barrow arteries of extremities with intermittent claudication, bilateral legs (ICD-10 - I70.213) Check and protect LE bilateral daily. Call if any changes or concerns. Advised patient on edema treatment recommendations. Recommendation for periodic elevation of feet and lower legs through the day. Recommend support compression hose. Recommend dietary restrictions salt intake. Followup with family physician for potential diuretic management if needed. 02/19/2025 Pain in right foot (ICD-10 - M79.671) 02/19/2025 Pain in left foot (ICD-10 - M79.672) Plan Of Treatment Treatment Notes Assessment Notes Ingrowing nail Aseptic debridement of elongated thickened nails x 10 using sterile nippers, nails were debrided in length and thickness by 30% utilizing a nail nipper without incident. The patient was educated regarding all treatment options that include topical and oral antifungal treatments and nail procedures. Slant Back Toenail: Following skin prep, the offending nail border was debrided without anesthesia. The patient was instructed on monitoring for infection or recurrence. Cold spray was used during trimming. She plans to have partial nail matrixectomy bilateral edges of left 1st nail next visit Tinea unguium Aseptic debridement of elongated thickened nails x 10 using sterile nippers, nails were debrided in length and thickness by 30% utilizing a nail nipper without incident. Acquired keratosis [keratode rma] palmaris et plantaris Hyperkeratosis x 3: The skin was prepped with isopropyl alcohol. Using a 15-blade scalpel, the hyperkeratotic skin lesions were sharply debrided down to healthy appearing skin. Atherosclerosis of barrow ar teries of extremities with intermittent claudication, [...] GC Provider Name:GEORGE ALBERT, 04/30/2025 01:20:00 PM, [address] [place] [address], [phone], History and Physical Notes * HPI (History of Present Illness) Category Sub-Category Detail Notes Category Not es HPI General care Patient presents to the office for at risk foot care. Patient states that their nails are thickened, elongated and painful. Patient states that it is aggravated by shoe gear. Onset is gradual. Patient denies being diabetic., Patient denies taking prescription blood thinners but does take a daily aspirin., Date last seen by Dr. Mendez was January 2025., Initials ab Examination Category Sub-Category Detail Notes Category Not [...] walked independently since. 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 Hammertoes Dorsally contracted digits 2-5 bilateral. The deformity is rigid and nonreducible Foot Structure The foot structure i s noted to be, planus, bilaterally Neurologic Gross sensation Gross sensation is intact to light touch. Vascular Dorsalis pedis pulse: bilateral, 2/4 Posterior tibial pulse: bilaterally, 2/4 Edema: bilateral +2 pitting edema, calves loose and nontender Progress Notes * Kori FERGUSONDOB: 8 (79 yo F)Acc No.[id number]:02/19/2025 Patient: Kori Nam Provider: Dustin FERRIS :1945 A ge:79 Y S ex:Female Date:02/19/2025 Address:[address] [place], [place] [address], [id number] Subjective: * Chief Complaints: * * General care * HPI: H PI: General care P atient presents to the office for at risk foot care. Patient states that their nails are thickened, elongated and painful. Patient states that it is aggravated by shoe gear. Onset is gradual. Patient denies being diabetic., Patient denies taking prescription blood thinners but does take a daily aspirin., Date last seen by Dr. Mendez was January 2025., Initials ab. * ROS: G eneral / Constitutional: Patient [...] Past Hospitalization. Hospitalization Verified. * Family History: F amily History Verified.. N on-Contributory.. * Social History: Social History Verified. No [...] TABLETS BY MOUTH EVERY DAY Oral Ipratropium Kemp 0.06 % Solution Nasal Azithromycin 250 MG [...] BY MOUTH EVERY DAY Oral Taking Ipratropium Kemp 0.06 % Solution Nasal Taking Azithromycin 250 [...] Verified. Objective: * Vitals: S hoe Size: 7, Wt: 184 lbs, Wt-k.46 kg, Ht: 62 [...] walked independently since. 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 Foot Structure T he foot structure is [...] et plantaris - L85.1 4 .?Atherosclerosis of barrow arteries of extremities with intermittent claudication, bilateral [...] healthy appearing skin. 4. A therosclerosis of barrow arteries of extremities with intermittent claudication, bilateral [...] 3 Months (Reason: GC) Billing Information: * Procedure Codes: * Electronic signature of ASIA FERRIS DPM on 03/26/2025 at 10:10 AM GRADES 1 THRU 6 HOME TEACHER Sign off status: Pending * Provider: Dustin FERRIS Date: 5 Generated for Shala aleman/Chad/Ana on: 1 05/26/2024 10:10 AM GRADES 1 THRU 6 HOME TEACHER
--- NOTE | ~2025-03-25 | MM_ITS ---
EXAMINATION: screening [facility] BI w billie INDICATION: Asymptomatic, referred for screening mammogram. Prior history of left lumpectomy. COMPARISON: 03/24/2024 through 02/23/2022 TECHNIQUE: Digital Breast Tomosynthesis CC, MLO views of Both breasts were obtained with computer-aided detection to assist in interpretation of the study. FINDINGS: There are scattered areas of fibroglandular density. There is a group of microcalcifications in the central retroareolar seen only on the CC view in middle third, posterior to the lumpectomy scar in the left breast. This calcifications appears to be increasing. Elsewhere, there are no mammographic features of malignancy. IMPRESSION: 1. Left breast Incompletely characterized group of calcifications. 2. No evidence of malignancy in the Right breast. RECOMMENDATION: Left breast Diagnostic mammogram with true lateral, and appropriate magnification views. BI-RADS Category 0: Incomplete: Needs additional imaging evaluation. Reviewed, dictated and finalized at location B. COATER IMPRESSION: 1. Left breast Incompletely characterized group of calcifications. 2. No evidence of malignancy in the Right breast. RECOMMENDATION: Left breast Diagnostic mammogram with true lateral, and appropriate magnificati on views. BI-RADS Category 0: Incomplete: Needs additional imaging evaluation.
--- OUTSIDE RECORDS SUMMARY | 2025-03-26 10:10 | XMS_ITS | Patient Health Record ---
Author Organization [facility] Address [address] [place], [place] [address] Care Team Providers Care Fryer Operator Name Role Phone FERRISGEORGE BORGES Unavailable [phone] Gal Mendez Unavailable Unavailable Allergies Allergen (clinical drug ingredient) Drug/Non Drug Allergy documented on EMR Reaction Allergy Type Onset Date Status Penicillin Unknown Drug Allergy Active Reason For Referral No Information Medications Medication SIG (Take, Route, Frequency, Duration) Notes Start Date End Date Status Primidone 50 MG Tablet Oral; Duration: 30 Days Active [facility] Jock Itch 1 % Cream 1 APPLIC TOPICAL LY DAILY FOR 1 WEEK External; Duration: 7 Days Active Furosemide 40 MG Tablet Oral; Duration: 90 Days Active Doxycycline Hyclate 100 MG Tablet Oral; Duration: 5 Days Activ e Pentoxifylline ER 400 MG Tablet Extended Release Oral; Duration: 90 Days Active Doxycycline Monohydrate 100 MG Capsule Oral; Duration: 10 Days Acti ve Nitrofurantoin Macrocrystal 100 MG Capsule TAKE 1 [...] Tablet Oral; Duration: 90 Days Acti ve Citalopram Hydrobromide 20 MG Tablet TAKE 2 TABLETS BY MOUTH EVERY DAY Oral; Duration: 90 Days Active Atorvastatin Calcium 40 MG Tablet TAKE 1 TABLET BY MOUTH EVERY DAY Oral; Duration: 90 Days Active Ipratropium [place] 0.06 % Solution Nasal; Duration: 90 Days Act lalitha predniSONE 50 MG Tablet Oral; Duration: 5 Days Active Azithromycin 250 MG Tablet TAKE 2 TABLET S BY MOUTH TODAY, THEN TAKE 1 TABLET DAILY FOR 4 DAYS DIRECTED Oral; Duration: 5 Days Active Spironolactone 100 MG Tablet Oral; Duration: 90 Days Active Nitrofurantoin Macrocrystal 100 MG Capsule Oral; Duration: 90 Days Ac tive Social History Social History Additional Details Category Social Info Options Details Drugs/Alcohol: Do you drink alcohol? No Vital Signs Height-cm 157.48 cm 02/19/2025 Weight-kg 83.46 kg 02/19/2025 Height 62 in 02/19/2025 Weight 184 lbs 02/19/2025 BMI 33.65 kg/m2 02/19/2025 Encounters Encounter Location Date Provider Diagnosis [address] [id number] 10/16/2024 GEORGE FERRIS Ingrowing nail L60.0 ; Tinea unguium B35.1 ; Acquired keratosis [keratoderma] palmaris et plantaris L85.1 ; Atherosclerosis of [place] arteries of extremities with intermittent claudication, bilateral legs I70.213 ; Pain in right foot M79.671 and Pain in left foot M79.[address] [id number] 12/18/2024 GEORGE FERRIS Ingrowing nail L60.0 ; Tinea unguium B35.1 ; Acquired keratosis [keratoderma] palmaris et plantaris L85.1 ; Atherosclerosis of [place] arteries of extremities with intermittent claudication, bilateral legs I70.213 ; Pain in right foot M79.671 and Pain in left foot M79.[address] [id number] 02/19/2025 GEORGE FERRIS Ingrowing nail L60.0 ; Tinea unguium B35.1 ; Acquired keratosis [keratoderma] palmaris et plantaris L85.1 ; Atherosclerosis of [place] arteries of extremities with intermittent claudication, bilateral [...] utilizing a nail nipper without incident. 12/18/2024 Tinea unguium (ICD-10 - B35.1) Aseptic debridement of elongated thickened nails x 10 using sterile nippers, nails were debrided in length and thickness by 30% utilizing a nail nipper without incident. 12/18/2024 Ingrowing nail (ICD-10 - L60.0) Aseptic debridement of elongated thickened nails x 10 using sterile nippers, nails were debrided in length and thickness by 30% utilizing a nail nipper without incident. The patient was educated regarding all treatment options that include topical and oral antifungal treatments and nail procedures. 02/19/2025 Ingrowing nail (ICD-10 - L60.0) Aseptic [...] debrided down to healthy appearing skin. 12/18/2024 Acquired keratosis [keratoderma] palmaris et plantaris (ICD-10 - L85.1) Hyperkeratosis x 3: The skin was prepped with isopropyl alcohol. Using a 15-blade scalpel, the hyperkeratotic skin lesions were sharply debrided down to healthy appearing skin. 10/16/2024 Acquired keratosis [keratoderma] palmaris et plantaris (ICD-10 - L85.1) 12/18/2024 Atherosclerosis of [place] arteries of extremities with intermittent claudication, bilateral legs (ICD-10 - I70.213) Check and protect LE bilateral daily. Call if any changes or concerns. Advised patient on edema treatment recommendations. Recommendation for periodic elevation of feet and lower legs through the day. Recommend support compression hose. Recommend dietary restrictions salt intake. Followup with family physician for potential diuretic management if needed. 10/16/2024 Atherosclerosis [place] arteries of extremities with intermittent claudication, bilateral legs (ICD-10 - I70.213) Check and protect LE bilateral daily. Call if any changes or concerns. Advised patient on edema treatment recommendations. Recommendation for periodic elevation of feet and lower legs through the day. Recommend support compression hose. Recommend dietary restrictions salt intake. Followup with family physician for potential diuretic management if needed. 02/19/2025 Atherosclerosis [place] arteries of extremities with intermittent claudication, bilateral [...] foot (ICD-10 - M79.671) 12/18/2024 Pain in right foot (ICD-10 - M79.671) 02/19/2025 Pain in right foot (ICD-10 - M79.671) 02/19/2025 Pain in left foot (ICD-10 - M79.672) 12/18/2024 Pain in left foot (ICD-10 - M79.672) 10/16/2024 Pain in left foot (ICD-10 - M79.672) Plan Of Treatment Next Appt Details Provider Name:GEORGE ALBERT, 04/30/2025 01:20:00 PM, [address] [place] [address], [id number], Insurance Providers Payer Name Payer Address Payer Phone Subscriber Number Group Number Insured Name Patient Relationship to Insured Coverage Start Date Coverage End Date [employer] [address] [place]AL[place] [phone] [id number] Kori Ferguson Self - patient is the insured Medical (General) History Medical History History ICD Code acid reflux Pneumonia Asthma/Bronchitis Leg/Feet cramps Gout Sleep apnea varicose veins depression hypertension Surgical History Surgery Date(Month/Year) appendectomy
--- OUTSIDE RECORDS SUMMARY | 2025-03-26 10:10 | XMS_ITS | Clinical Summary ---
Author Organization [facility] Address [address] [place] [address] Care Team Providers Care Admitting Clerk Name Role Phone Ce Thompson MD Primary Care Provider [phone] Allergies Active Allergy Reactions Criticality Noted Date [...] (04/30/2021): Added automatically from request for surgery [id number] Spasmodic torticollis 02/11/2015 Surgical History Surgery Date [...] Date Smoking Tobacco: Every Day Cigarettes 0.5 59.8 Started: 1963 Smokeless Tobacco: Never Tobacco Cessation:Ready [...] on file Legal Sex Female 2:31 AM SUPERVISOR TUBING Gender Identity Not on file Sexual Orientation Not on file Last Filed Vital Signs Vital Sign Reading Time Taken Comments Blood Pressure 106/48 07/01/2021 2:00 PM SUPERVISOR TUBING Pulse 78 07/01/2021 2:00 PM SUPERVISOR TUBING Temperature 36.3 C (97.3 F) 07/01/2021 1:10 PM SUPERVISOR TUBING Respiratory Rate 15 07/01/2021 2:00 PM SUPERVISOR TUBING Oxygen Saturation 97% 07/01/2021 2:00 PM SUPERVISOR TUBING Inhaled Oxygen Concentration - - Weight 83 kg (182 lb 15.7 oz) 07/21/2021 3:53 PM SUPERVISOR TUBING Height 157.5 cm (5' 2) 07/21/2021 3:53 PM SUPERVISOR TUBING Body Mass Index 33.47 07/21/2021 3:53 PM SUPERVISOR TUBING Plan of Treatment Not on file Medical Devices Implanted Type Area Project Control Officer Device Identifier Shelf Expiration Date Model / Serial / Lot F[employer] Inc [id number] Magseed 18ga 7cm Marker Breast Biopsy - [id number] Implanted:Qty : 1 on 07/01/2021 at [facility] Left: Breast [employer] [id number] Insurance [facility] MEDICARE ADVANTAGE [facility] MEDICARE ADVANTAGE Advance Directives For more information, please contact: [phone] Documents on File Type Date Recorded Patient Rn Picu Expl anation ADVANCE DIRECTIVE 07/06/2021 2:00 PM Power of Pool Finisher-Medical Care Teams Admitting Clerk Relationship Specialty Start Date End Date Ce Thompson MD [address] [place] [address] PCP - General 09/26/16
--- OUTSIDE RECORDS SUMMARY | 2025-03-26 10:10 | XMS_ITS | Clinical Summary ---
Author Organization [facility] Address [address] [place] [address] Care Team Providers Care Manager Hospital Name Role Phone Michele Jaramillo MD Unavailable Gal Mendez DO Primary Care Provider [phone] Allergies Active Allergy Reactions Criticality Noted Date [...] torticollis 02/11/2015 Arterial insufficiency COPD (chronic obstructive pulmonary disease) Resolved Problems Problem Noted Date Diagnosed Date [...] place to sleep or slept in a nursing home (including now)? No 11/11/2022 Comments No Sex [...] Comments Blood Pressure 118/62 07/25/2023 8:20 AM SUPPORT DIRECTOR Pulse 66 07/25/2023 8:20 AM SUPPORT DIRECTOR Temperature 36.5 C (97.7 F) 07/25/2023 7:09 AM SUPPORT DIRECTOR Respiratory Rate 20 07/25/2023 8:20 AM SUPPORT DIRECTOR Oxygen Saturation 94% 07/25/2023 8:20 AM SUPPORT DIRECTOR Inhaled Oxygen Concentration - - Weight 83.5 kg (184 lb) 07/13/2023 10:20 AM SUPPORT DIRECTOR Height 157.5 cm (5' 2) 07/13/2023 10:20 AM SUPPORT DIRECTOR Body Mass Index 33.65 07/13/2023 10:20 AM SUPPORT DIRECTOR Plan of Treatment Health Maintenance Due Date Last Done Comments ASCVD LDL 1945 ASCVD Statin 1945 Hepatitis C 11/03/1963 DTaP, Tdap and Td Vaccines (1 - Tdap) 11/03/1966 Zoster Vaccines (1 of 2) 11/03/1997 Annual Medicare Wellness Visit 11/03/2012 Dexa Scan (General) 11/03/2012 RSV Immunization or 60+ Years (1 - 1-dose 75+ series) 11/03/2022 COVID-19 Vaccine ( - season) 2025 09/30/2021, 05/09/2021, 08/17/2020, Additional history exists Influenza Adult (#1) 2025 03/29/2021, 04/05/2020, 03/03/2019, Additional history exists Pneumococcal Vaccine: 50+ Years Completed 03/06/2018, 03/11/2015 Hepatitis A Vaccines Aged Out No long er eligible based on patient's age to complete this topic Meningococcal B Vaccine Aged Out No l onger eligible based on patient's age to complete this topic Meningococcal Vaccine Aged Out No rosi jose eligible based on patient's age to complete this topic RSV Immunizations Under 20 Months Aged Out No longer eligible based on patient's age to complete this topic Goals Goal Patient Goal Type Associated Problems Recent Progress Patient-Stated? Author Family - family caregiver with be involved in care transitions and discharge planning Lifestyle No Tala Rivers, RN Medical Devices Implanted Type Area Concrete Block Maker Device Identifier Shelf Expiration Date Model / Serial / Lot Iol Tecnis Simplicity Dcb00 - [id number] Implanted:Qty: 1 on 06/27/2023 by Grace Reyes MD at [facility] [employer] [employer] DCB00 / / [id number] Iol Tecnis Simplicity Dcb00 - [id number] Implanted:Qty: 1 on 07/25/2023 by Grace Reyes MD at [facility] [facility] Left: Eye [employer] DCBOO 01/31/2026 DCB00 / / NONE Nail Implanted:Qty: 1 on 02/06/2020 by Fox Toussaint MD at [facility] Right: Leg SYNTHES 12/18/2028 04.037.026 S / / [id number] Screw Synthes 3.5 Cannulated Tfn 90mm - [id number] Implanted:Qty: 1 on 02/06/2020 by Fox Toussaint MD at [facility] Right: Leg SYNTHES 06/20/2029 [id number] S / / [id number] Screw Synthes 5.0 Ti Locking W/T25 Star 36mm - [id number] Implanted:Qty: 1 on 02/06/2020 by Fox Toussaint MD at [facility] SYNTHES 08/18/2028 04.005.526 S / / [id number] Explanted Type Area Concrete Block Maker Device Identifier Shelf Expiration Date Model / Serial / Lot 2.5mm Reaming Tristan With Ball Explanted:Qty: 1 on 02/06/2020 by Fox Toussaint MD at [facility] Right: Leg SYN[employer]ES 09/17/2028 [id number] / / [id number] Wire Explanted:Qty: 4 on 02/06/2020 by Fox Toussanit MD at [facility] Right: Leg SY[employer]ES 357.399 / / Drill Bit Synthes 4.2mm 3 Fluted 145mm Qc - [id number] Explanted:Qty: 1 on 02/06/2020 at [facility] SYNTHES [id number] / / Insurance [employer] MEDICARE Advance Directives * Full Code (Latest Code Status on File) Date Activated Date Inactivated Comments 11/11/2022 10:26 PM 11/17/2022 5:57 PM * Full Code Date Activated Date Inactivated Comments 10/23/2022 3:46 PM 10/26/2022 4:01 PM * Full Code Date Activated Date Inactivated Comments 12/26/2018 5:54 PM 12/27/2018 3:00 PM Care Teams Manager Hospital Relationship Specialty Start Date End Date Gal Mendez DO [facility] [place] [address] PCP - General FAMILY PRACTICE 06/27/23 Michele Jaramillo MD Vascular/Lard Bleacher INTERNAL MEDICINE 01/08/18
== END 2025-03-25 10:26 | disposition home or self-care (01) ==
LOC: CHSIMG 10:28
PROVIDERS: PCP Family Medicine; Visit Provider Family Medicine
DX: Z12.31 Encounter for screening mammogram for malignant neoplasm of breast (principal); R92.0 Mammographic microcalcification found on diagnostic imaging of breast
CPT/HCPCS: 77063; 77067

== ENCOUNTER 2025-04-01 12:35 | Outpatient (CLI) | payer MEDICARE, SELFPAY ==
--- NOTE | ~2025-04-01 | XR_ITS ---
EXAM/PROCEDURE: XR chest 2V HISTORY: R05.9 - Cough, unspecified COMPARISON: April 30, 2024 TECHNIQUE: Two view(s) of the chest. FINDINGS: LUNGS: Clear of acute processes. A large calcified granuloma in the lateral right lung is unchanged. There are also some calcified right hilar lymph nodes. PLEURAL SPACES: Clear. No evidence of fluid or pneumothorax. HEART/ MEDIASTINUM: Heart size is upper limits of normal. SOFT TISSUES: No significant findings. BONES: No acute osseous abnormality. IMPRESSION: No acute findings. Reviewed, dictated and finalized at location A. LAYER IMPRESSION: No acute findings.
[2025-04-01 12:55] LABS: Hematocrit 43.3 % (35.0-42.0); Hemoglobin 14.4 g/dL (11.7-13.8); Immature Granulocyte Percent A 1.0 % (0.0-0.0); Lymphocytes Absolute Auto 2.33 K/mm3 (1.10-4.50); Mean Corpuscular HGB Conc 33.3 g/dL (32-36); Mean Corpuscular Hemoglobin 31.2 pg (27.0-31.0); Mean Corpuscular Volume 93.7 fL (78.0-102.0); Nucleated Red Blood Cells Absolute Auto 0.00 K/mm3 (0.00-0.00); Nucleated Red Blood Cells Perc 0.0 % (0-0.0); Platelet Count Result 251 K/mm3 (150-420); Red Blood Count 4.62 M/mm3 (4.20-5.40); White Blood Count 8.4 K/mm3 (4.8-10.8)
[2025-04-01 13:16] LABS: Alanine Aminotransferase 22 U/L (6-35); Albumin Level 4.5 g/dL (3.5-5.1); Alkaline Phosphatase 164 U/L (38-126); Anion Gap 8 mmol/L (4-12); Aspartate Amino Transferase 20 U/L (14-36); Blood Urea Nitrogen 17 mg/dL (7-17); Calcium 9.6 mg/dL (8.4-10.2); Carbon Dioxide 32 mmol/L (22-30); Chloride 100 mmol/L (98-107); Estimated Glomerular Filt Rate 48; Glucose 98 mg/dL (65-110); Osmolality Calculated 291 mOsm/kg (285-295); Potassium 4.8 mmol/L (3.4-5.0); Sodium 140 mmol/L (137-145); Total Protein 6.8 g/dL (6.3-8.2)
--- OUTSIDE RECORDS SUMMARY | 2025-04-01 13:36 | XMS_ITS | Clinical Summary ---
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 Surgical History Surgery Date [...] Date Smoking Tobacco: Every Day Cigarettes 0.5 59.9 Started: 1963 Smokeless Tobacco: Never Tobacco Cessation:Ready [...] on file Legal Sex Female 2:31 AM WARDROBE IMAGE CONSULTANT Gender Identity Not on file Sexual Orientation Not on file Last Filed Vital Signs Vital Sign Reading Time Taken Comments Blood Pressure 106/48 07/01/2021 2:00 PM WARDROBE IMAGE CONSULTANT Pulse 78 07/01/2021 2:00 PM WARDROBE IMAGE CONSULTANT Temperature 36.3 C (97.3 F) 07/01/2021 1:10 PM WARDROBE IMAGE CONSULTANT Respiratory Rate 15 07/01/2021 2:00 PM WARDROBE IMAGE CONSULTANT Oxygen Saturation 97% 07/01/2021 2:00 PM WARDROBE IMAGE CONSULTANT Inhaled Oxygen Concentration - - Weight 83 kg (182 lb 15.7 oz) 07/21/2021 3:53 PM WARDROBE IMAGE CONSULTANT Height 157.5 cm (5' 2) 07/21/2021 3:53 PM WARDROBE IMAGE CONSULTANT Body Mass Index 33.47 07/21/2021 3:53 PM WARDROBE IMAGE CONSULTANT Plan of Treatment Not on file Medical Devices Implanted Type Area Tree And Shrub Technician Device Identifier Shelf Expiration Date Model / Serial / Lot [employer] Inc [id number] Magseed 18ga 7cm Marker Breast Biopsy - [id number] Implanted:Qty : 1 on 07/01/2021 at [facility] Left: Breast [employer] [id number] Insurance [facility] MEDICARE ADVANTAGE [facility] MEDICARE ADVANTAGE Advance Directives For more information, please contact: [phone] Documents on File Type Date Recorded Patient Select Banker Expl anation ADVANCE DIRECTIVE 07/06/2021 2:00 PM Power of Fabrication And Layout Craftsman-Medical Care Teams Wool Sampler Relationship Specialty Start Date End Date Ce Thompson MD [address] [place] [address] PCP - General 09/26/16
[2025-04-07 13:08] LABS: Bilirubin,Total 0.6 mg/dL (0.2-1.3)
== END 2025-04-01 12:36 | disposition home or self-care (01) ==
PROVIDERS: PCP Family Medicine; Visit Provider Family Medicine
DX: R05.9 Cough, unspecified (principal)
CPT/HCPCS: 36415; 71046; 80053; 85025